=== PATIENT | male | born 1950 | race Caucasian/White ===

== ENCOUNTER 2017-10-13 18:20 | Inpatient (IN) | payer OTHER ==
[2017-10-13] MEDS: ALBUTEROL 0.5% (NEB) 2.5 MG/0.5 ML AMP INH (19:08)
[2017-10-13 19:09] LABS: WHITE BLOOD COUNT 4.9 10^3/ul (4.8-10.8)
[2017-10-13 19:09] LABS: ABNORMAL IP MESSAGE 1; HEMATOCRIT 20.1 % (42.0-52.0); MEAN CORPUSCULAR HEMOGLOBIN 29.9 pg (29.0-33.0); MEAN CORPUSCULAR HGB CONC 32.8 g/dl (32.0-37.0); MEAN PLATELET VOLUME 10.9 fl (7.4-10.4); PLATELET COUNT 109 10^3/UL (140-415); POSITIVE DIFF @See below; RED BLOOD COUNT 2.21 10^6/ul (4.70-6.10); RED CELL DISTRIBUTION WIDTH 15.5 % (11.5-14.5)
[2017-10-13 19:18] LABS: ADD MAN DIFF? YES; HEMOGLOBIN 6.6 g/dl (14.0-18.0)
[2017-10-13 19:23] LABS: INR 1.15; PROTIME 14.9 Sec (11.9-14.9); PT RATIO 1.2
[2017-10-13 19:24] LABS: PARTIAL THROMBOPLASTIN TIME 35.7 Sec (25.0-35.0)
[2017-10-13 19:27] LABS: ALANINE AMINOTRANSFERASE 17 IU/L (13-69); ALBUMIN/GLOBULIN RATIO 0.96; ALKALINE PHOSPHATASE 119 IU/L (42-121); ANION GAP 20 (8-16); ASPARTATE AMINO TRANSFERASE 11 IU/L (15-46); BILIRUBIN,INDIRECT 0.3 mg/dl (0-1.1); BILIRUBIN,TOTAL 0.3 mg/dl (0.2-1.3); BLOOD UREA NITROGEN 47 mg/dl (7-20); CALCIUM 8.4 mg/dl (8.4-10.2); CARBON DIOXIDE 27 mmol/L (21-31); CHLORIDE 92 mmol/L (97-110); CREATININE 4.03 mg/dl (0.61-1.24); GLUCOSE 132 mg/dl (70-220); SODIUM 134 mmol/L (135-144); TOTAL PROTEIN 6.1 g/dl (6.1-8.1)
[2017-10-13] MEDS: MAGNESIUM SULFATE 1 GM/D5W 100 ML IVPB (19:47)
[2017-10-13] MEDS: SOD CHLORIDE 0.9% 1,000 ML IV (19:47)
[2017-10-13 19:50] LABS: TROPONIN-I 0.041 ng/ml (0.00-0.12)
[2017-10-13 19:53] LABS: ETHANOL < 10.0 mg/dl
[2017-10-13 20:04] LABS: BAND NEUTROPHILS % (M) 1 % (0-4); EOSINOPHILS # 0.2 10^3/ul (0.0-0.5); EOSINOPHILS % (M) 5 % (0.0-7.0); LYMPHOCYTES # 1.3 10^3/ul (0.8-2.9); LYMPHOCYTES #M 1.3 10^3/ul (0.8-2.9); LYMPHOCYTES % (M) 27 % (15-51); MONOCYTE # 0.8 10^3/ul (0.3-0.9); MONOCYTE #M 0.7 10^3/ul (0.3-0.9); MONOCYTES % (M) 16 % (0-11); SEG NEUT #M 2.5 10^3/ul (1.7-7.5); SEGMENTED NEUTROPHILS (M) % 51 % (39-77)
[2017-10-13 20:05] LABS: HYPOCHROMASIA 2+ (0-0)
[2017-10-13 20:20] LABS: MODE ROOM AIR; Site Right Brachial
[2017-10-14] MEDS ORDERED: GLUCAGON 1 MG INJ IM (02:30)
[2017-10-14] MEDS ORDERED: GLUCOSE GEL 15 GRAM TUBE PO ×2 (02:30)
[2017-10-14] MEDS ORDERED: GLUCOSE GEL 15 GRAM TUBE BUCCAL (02:30)
[2017-10-14] MEDS: ACCU-CHEK XX (02:46)
[2017-10-14] MEDS: PANTOPRAZOLE (EC) 40 MG TAB PO (06:34)
[2017-10-14 07:00] LABS: AADO2 Arterial 27.2 mmHg (7.0-24.0); Arterial Base Excess 1.7 mmol/L (-3.0-3); Arterial Blood Gas Oxygen Sat 94.9 mmHG (95.0-98.0); Arterial COHb 0.4 % (0.0-3.0); Arterial Fraction of Oxyhgb 94.1 % (93.0-99.0); Arterial HCO3 25.8 mmol/L (22.0-26.0); Arterial MetHb 0.4 % (0.0-1.5); Arterial Total Hemglobin 7.9 g/dl (12.0-18.0); Arterial pCO2 38.1 mmhg (35-45)
[2017-10-14] MEDS: INSULIN ASPART [NOVOLOG] 3 ML PEN SC ×4 (08:00→23:51)
[2017-10-14] MEDS: GABAPENTIN 300 MG CAP PO ×3 (08:42→22:30)
[2017-10-14] MEDS: ZINC SULFATE 220 MG CAP PO (08:42)
[2017-10-14] MEDS: DILTIAZEM (CD) 180 MG CAP PO (08:42)
[2017-10-14] MEDS: LORATADINE 10 MG TAB PO (08:42)
[2017-10-14] MEDS: METOPROLOL (XL) 50 MG TAB PO (08:42)
[2017-10-14] MEDS: PYRIDOXINE 50 MG TAB PO (08:45)
[2017-10-14 08:54] LABS: ADD MAN DIFF? NO
[2017-10-14 09:00] LABS: WHITE BLOOD COUNT 4.7 10^3/ul (4.8-10.8)
[2017-10-14 09:00] LABS: ABNORMAL IP MESSAGE 1; BASOPHILS % 0.4 % (0.0-2.0); EOSINOPHILS # 0.8 10^3/ul (0.0-0.5); HEMATOCRIT 24.2 % (42.0-52.0); HEMOGLOBIN 8.1 g/dl (14.0-18.0); LYMPHOCYTES % 20.2 % (15.0-51.0); MEAN CORPUSCULAR HEMOGLOBIN 29.9 pg (29.0-33.0); MEAN CORPUSCULAR HGB CONC 33.5 g/dl (32.0-37.0); MEAN CORPUSCULAR VOLUME 89.3 fl (82.0-101.0); MEAN PLATELET VOLUME 10.6 fl (7.4-10.4); MONOCYTE # 0.5 10^3/ul (0.3-0.9); MONOCYTES % 9.8 % (0.0-11.0); NEUTROPHIL # 2.5 10^3/ul (1.6-7.5); NEUTROPHILS % 52.2 % (39.0-77.0); PLATELET COUNT 94 10^3/UL (140-415); POSITIVE DIFF @See below; RED BLOOD COUNT 2.71 10^6/ul (4.70-6.10); RED CELL DISTRIBUTION WIDTH 15.6 % (11.5-14.5)
[2017-10-14 09:08] LABS: HEMOGLOBIN A1C 6.2 % (0-5.9)
[2017-10-14 09:19] LABS: ANION GAP 17 (8-16); BLOOD UREA NITROGEN 53 mg/dl (7-20); CALCIUM 8.4 mg/dl (8.4-10.2); CARBON DIOXIDE 28 mmol/L (21-31); CHLORIDE 94 mmol/L (97-110); CREATININE 4.07 mg/dl (0.61-1.24); GLUCOSE 109 mg/dl (70-220); IRON 111 ug/dl (35-150); MAGNESIUM 1.7 mg/dl (1.7-2.5); PHOSPHORUS 4.7 mg/dl (2.5-4.9); POTASSIUM 4.6 mmol/L (3.5-5.1); SODIUM 134 mmol/L (135-144)
[2017-10-14 09:28] LABS: % IRON SATURATION 54 % SAT (22-52); TOTAL IRON BINDING CAPACITY 207 ug/dl (241-421)
[2017-10-14] MEDS ORDERED: VANCOMYCIN IV PER PHARMACY XX (11:00)
[2017-10-14] MEDS: IOHEXOL 14.3 MG(I)/ML (ADULT) BTL PO (12:00)
[2017-10-14] MEDS: CEFEPIME 1GM/50 ML (PMX) 50 ML IVPB (13:23)
[2017-10-14] MEDS: VANCOMYCIN 1 GM 250 ML IVPB ×2 (16:56→18:51)
[2017-10-14] MEDS ORDERED: EPOETIN 4000 UNITS/1 ML INJ (ESRD) SC (17:00)
[2017-10-14] MEDS: ATORVASTATIN 20 MG TAB PO (22:30)
[2017-10-14] MEDS: INSULIN GLARGINE [LANtus] 3 ML PEN SC (23:55)
[2017-10-15] MEDS: ACCU-CHEK XX (02:00)
[2017-10-15] MEDS: PANTOPRAZOLE (EC) 40 MG TAB PO (06:07)
[2017-10-15] MEDS: INSULIN ASPART [NOVOLOG] 3 ML PEN SC ×4 (07:56→20:50)
[2017-10-15] MEDS: LORATADINE 10 MG TAB PO (09:04)
[2017-10-15] MEDS: PYRIDOXINE 50 MG TAB PO (09:06)
[2017-10-15] MEDS: GABAPENTIN 300 MG CAP PO ×3 (09:06→20:37)
[2017-10-15] MEDS: DILTIAZEM (CD) 180 MG CAP PO (09:06)
[2017-10-15] MEDS: METOPROLOL (XL) 50 MG TAB PO (09:06)
[2017-10-15] MEDS: ZINC SULFATE 220 MG CAP PO (09:06)
[2017-10-15] MEDS: DOCUSATE SODIUM 100 MG CAP PO (09:06)
[2017-10-15] MEDS: ASCORBIC ACID 500 MG TAB PO (09:06)
[2017-10-15] MEDS: MULTIVIT/CA CARB/B CMPLX/FA TAB PO (09:06)
[2017-10-15] MEDS: POLYETHYLENE GLYCOL 17 GM PACKET PO (09:07)
[2017-10-15] MEDS: LACTOBACILLUS RHAMNOSUS CAP PO (09:07)
[2017-10-15 09:14] LABS: ADD MAN DIFF? NO
[2017-10-15 09:18] LABS: ABNORMAL IP MESSAGE 1; BASOPHILS % 0.4 % (0.0-2.0); EOSINOPHILS # 0.8 10^3/ul (0.0-0.5); EOSINOPHILS % 14.6 % (0.0-7.0); HEMATOCRIT 22.6 % (42.0-52.0); HEMOGLOBIN 7.6 g/dl (14.0-18.0); LYMPHOCYTES # 1.2 10^3/ul (0.8-2.9); LYMPHOCYTES % 22.7 % (15.0-51.0); MEAN CORPUSCULAR HEMOGLOBIN 30.5 pg (29.0-33.0); MEAN CORPUSCULAR HGB CONC 33.6 g/dl (32.0-37.0); MEAN CORPUSCULAR VOLUME 90.8 fl (82.0-101.0); MEAN PLATELET VOLUME 10.3 fl (7.4-10.4); MONOCYTE # 0.9 10^3/ul (0.3-0.9); MONOCYTES % 17.3 % (0.0-11.0); NEUTROPHIL # 2.3 10^3/ul (1.6-7.5); NEUTROPHILS % 44.6 % (39.0-77.0); POSITIVE DIFF @See below; RED BLOOD COUNT 2.49 10^6/ul (4.70-6.10); RED CELL DISTRIBUTION WIDTH 15.4 % (11.5-14.5)
[2017-10-15 09:18] LABS: WHITE BLOOD COUNT 5.2 10^3/ul (4.8-10.8)
[2017-10-15 09:22] LABS: PLATELET COUNT 98 10^3/UL (140-415)
[2017-10-15 09:37] LABS: ANION GAP 11 (8-16); BLOOD UREA NITROGEN 37 mg/dl (7-20); CALCIUM 8.2 mg/dl (8.4-10.2); CARBON DIOXIDE 31 mmol/L (21-31); CHLORIDE 100 mmol/L (97-110); CREATININE 2.98 mg/dl (0.61-1.24); GLUCOSE 110 mg/dl (70-220); MAGNESIUM 1.7 mg/dl (1.7-2.5); POTASSIUM 4.1 mmol/L (3.5-5.1); SODIUM 138 mmol/L (135-144)
[2017-10-15 10:09] LABS: HEPATITIS B SURFACE ANTIGEN NEGATIVE (NEGATIVE)
[2017-10-15 10:26] LABS: HEPATITIS B SURFACE ANTIBODY NEGATIVE (NEGATIVE)
[2017-10-15 10:27] LABS: HEPATITIS B CORE ANTIBODY NEGATIVE (NEGATIVE)
[2017-10-15] MEDS: CEFEPIME 1GM/50 ML (PMX) 50 ML IVPB (12:12)
[2017-10-15 12:38] LABS: IMMEDIATE SPIN CROSSMATCH 1 3
[2017-10-15 16:51] LABS: TYPE AND SCREEN 1
[2017-10-15] MEDS: ATORVASTATIN 20 MG TAB PO (20:37)
[2017-10-15] MEDS: INSULIN GLARGINE [LANtus] 3 ML PEN SC (20:50)
[2017-10-16] MEDS: ACCU-CHEK XX (01:35)
[2017-10-16 05:39] LABS: ADD MAN DIFF? NO
[2017-10-16 05:45] LABS: BASOPHILS % 0.3 % (0.0-2.0); EOSINOPHILS % 14.1 % (0.0-7.0); HEMATOCRIT 24.1 % (42.0-52.0); HEMOGLOBIN 7.9 g/dl (14.0-18.0); LYMPHOCYTES # 1.5 10^3/ul (0.8-2.9); LYMPHOCYTES % 22.9 % (15.0-51.0); MEAN CORPUSCULAR HGB CONC 32.8 g/dl (32.0-37.0); MEAN CORPUSCULAR VOLUME 91.6 fl (82.0-101.0); MEAN PLATELET VOLUME 10.5 fl (7.4-10.4); MONOCYTE # 1.3 10^3/ul (0.3-0.9); MONOCYTES % 19.5 % (0.0-11.0); NEUTROPHIL # 2.9 10^3/ul (1.6-7.5); NEUTROPHILS % 42.9 % (39.0-77.0); PLATELET COUNT 114 10^3/UL (140-415); RED BLOOD COUNT 2.63 10^6/ul (4.70-6.10); RED CELL DISTRIBUTION WIDTH 15.3 % (11.5-14.5)
[2017-10-16 05:45] LABS: WHITE BLOOD COUNT 6.7 10^3/ul (4.8-10.8)
[2017-10-16] MEDS: morphine 2 MG INJ IV (06:00)
[2017-10-16] MEDS: PANTOPRAZOLE (EC) 40 MG TAB PO (06:00)
[2017-10-16 06:10] LABS: ANION GAP 11 (8-16); BLOOD UREA NITROGEN 44 mg/dl (7-20); CALCIUM 8.3 mg/dl (8.4-10.2); CARBON DIOXIDE 32 mmol/L (21-31); CHLORIDE 100 mmol/L (97-110); CREATININE 3.46 mg/dl (0.61-1.24); GLUCOSE 51 mg/dl (70-220); POTASSIUM 4.3 mmol/L (3.5-5.1); SODIUM 139 mmol/L (135-144)
[2017-10-16 06:12] LABS: VANCOMYCIN,RANDOM 8.7 ug/ml
[2017-10-16] MEDS: INSULIN ASPART [NOVOLOG] 3 ML PEN SC ×4 (08:00→20:44)
[2017-10-16] MEDS: METOPROLOL (XL) 50 MG TAB PO (09:00)
[2017-10-16] MEDS: DILTIAZEM (CD) 180 MG CAP PO (09:00)
[2017-10-16] MEDS: DOCUSATE SODIUM 100 MG CAP PO (09:02)
[2017-10-16] MEDS: MULTIVIT/CA CARB/B CMPLX/FA TAB PO (09:02)
[2017-10-16] MEDS: POLYETHYLENE GLYCOL 17 GM PACKET PO (09:03)
[2017-10-16] MEDS: LACTOBACILLUS RHAMNOSUS CAP PO (09:03)
[2017-10-16] MEDS: PYRIDOXINE 50 MG TAB PO (09:03)
[2017-10-16] MEDS: ZINC SULFATE 220 MG CAP PO (09:03)
[2017-10-16] MEDS: LORATADINE 10 MG TAB PO (09:03)
[2017-10-16] MEDS: GABAPENTIN 300 MG CAP PO ×3 (09:03→20:57)
[2017-10-16] MEDS: ASCORBIC ACID 500 MG TAB PO (09:08)
[2017-10-16 09:16] LABS: RETICULOCYTE RBC 2.77
[2017-10-16 09:16] LABS: RETICULOCYTE COUNT # 0.014 X10^6 (0.020-0.110); RETICULOCYTE COUNT % 0.5 % (0.5-1.5)
[2017-10-16 09:25] LABS: URIC ACID 4.5 mg/dl (3.1-7.9)
[2017-10-16 09:25] LABS: LACTATE DEHYDROGENASE 579 IU/L (313-618)
[2017-10-16 09:26] LABS: IRON 45 ug/dl (35-150)
[2017-10-16 09:36] LABS: % IRON SATURATION 20 % SAT (22-52); TOTAL IRON BINDING CAPACITY 223 ug/dl (241-421)
[2017-10-16 10:37] LABS: FOLATE 13.4 ng/ml (2.8-20.0)
[2017-10-16 11:00] LABS: CARCINOEMBRYONIC ANTIGEN 2.3 ng/ml (0.0-5.0)
[2017-10-16] MEDS ORDERED: ERTAPENEM SODIUM 0.5 GM in SOD CHLORIDE 0.9% 100 ML IVPB (11:30)
[2017-10-16] MEDS ORDERED: AMIKACIN IV PER PHARMACY XX (12:00)
[2017-10-16] MEDS: hydrOXYzine HCL 25 MG TAB PO (12:07)
[2017-10-16] MEDS: FOSFOMYCIN 3 GM PACKET PO (12:23)
[2017-10-16] MEDS ORDERED: VANCOMYCIN 1.25 GM in SOD CHLORIDE 0.9% 250 ML IVPB (13:00)
[2017-10-16] MEDS: AMPICILLIN 500 MG CAP PO ×2 (14:04→22:37)
[2017-10-16] MEDS: AMIKACIN 600 MG in DEXTROSE 5% 100 ML IVPB (18:34)
[2017-10-16] MEDS: ATORVASTATIN 20 MG TAB PO (20:56)
[2017-10-16] MEDS: INSULIN GLARGINE [LANtus] 3 ML PEN SC (20:58)
[2017-10-17] MEDS: ACCU-CHEK XX (02:13)
[2017-10-17] MEDS: AMPICILLIN 500 MG CAP PO ×3 (05:19→21:06)
[2017-10-17] MEDS: PANTOPRAZOLE (EC) 40 MG TAB PO (05:19)
[2017-10-17] MEDS: INSULIN ASPART [NOVOLOG] 3 ML PEN SC ×4 (08:00→21:04)
[2017-10-17] MEDS: GABAPENTIN 300 MG CAP PO ×3 (08:22→21:05)
[2017-10-17] MEDS: PYRIDOXINE 50 MG TAB PO (08:22)
[2017-10-17] MEDS: LACTOBACILLUS RHAMNOSUS CAP PO (08:22)
[2017-10-17] MEDS: MULTIVIT/CA CARB/B CMPLX/FA TAB PO (08:22)
[2017-10-17] MEDS: LORATADINE 10 MG TAB PO (08:22)
[2017-10-17] MEDS: POLYETHYLENE GLYCOL 17 GM PACKET PO (08:22)
[2017-10-17] MEDS: hydrOXYzine HCL 25 MG TAB PO (08:22)
[2017-10-17] MEDS: DOCUSATE SODIUM 100 MG CAP PO (08:23)
[2017-10-17] MEDS: ZINC SULFATE 220 MG CAP PO (08:23)
[2017-10-17] MEDS: ASCORBIC ACID 500 MG TAB PO (08:23)
[2017-10-17] MEDS: DILTIAZEM (CD) 180 MG CAP PO (08:24)
[2017-10-17] MEDS: METOPROLOL (XL) 50 MG TAB PO (08:24)
[2017-10-17 09:50] LABS: ADD MAN DIFF? NO
[2017-10-17 09:53] LABS: WHITE BLOOD COUNT 5.8 10^3/ul (4.8-10.8)
[2017-10-17 09:53] LABS: BASOPHILS % 0.5 % (0.0-2.0); EOSINOPHILS % 16.8 % (0.0-7.0); HEMOGLOBIN 8.4 g/dl (14.0-18.0); LYMPHOCYTES # 1.4 10^3/ul (0.8-2.9); LYMPHOCYTES % 23.7 % (15.0-51.0); MEAN CORPUSCULAR HGB CONC 32.3 g/dl (32.0-37.0); MEAN CORPUSCULAR VOLUME 92.9 fl (82.0-101.0); MEAN PLATELET VOLUME 10.2 fl (7.4-10.4); MONOCYTE # 1.1 10^3/ul (0.3-0.9); NEUTROPHIL # 2.4 10^3/ul (1.6-7.5); NEUTROPHILS % 40.8 % (39.0-77.0); PLATELET COUNT 114 10^3/UL (140-415); RED CELL DISTRIBUTION WIDTH 15.2 % (11.5-14.5)
[2017-10-17 10:20] LABS: ANION GAP 13 (8-16); BLOOD UREA NITROGEN 25 mg/dl (7-20); CALCIUM 8.3 mg/dl (8.4-10.2); CARBON DIOXIDE 31 mmol/L (21-31); CHLORIDE 99 mmol/L (97-110); CREATININE 2.47 mg/dl (0.61-1.24); GLUCOSE 90 mg/dl (70-220); SODIUM 139 mmol/L (135-144)
[2017-10-17 10:57] LABS: OCCULT BLOOD STOOL NEGATIVE (NEGATIVE)
[2017-10-17] MEDS: AMIKACIN 400 MG in DEXTROSE 5% 100 ML IVPB (13:21)
[2017-10-17] MEDS ORDERED: VANCOMYCIN IV PER PHARMACY XX (14:30)
[2017-10-17 15:52] LABS: HAPTOGLOBIN 164 mg/dL (43-212)
[2017-10-17] MEDS: VANCOMYCIN 2 GM in SOD CHLORIDE 0.9% 500 ML IVPB (16:37)
[2017-10-17 19:36] LABS: ERYTHROPOIETIN 38.2 mIU/mL (2.6-18.5)
[2017-10-17] MEDS: ALBUTEROL 0.083% (NEB) 2.5 MG/3 ML AMP NEB (20:36)
[2017-10-17] MEDS: INSULIN GLARGINE [LANtus] 3 ML PEN SC (21:03)
[2017-10-17] MEDS: ATORVASTATIN 20 MG TAB PO (21:05)
[2017-10-17] MEDS: NYSTATIN 30 GM POWDER BTL TOP (21:06)
[2017-10-18] MEDS: ACCU-CHEK XX (02:00)
[2017-10-18] MEDS: AMPICILLIN 500 MG CAP PO ×3 (05:40→21:07)
[2017-10-18] MEDS: PANTOPRAZOLE (EC) 40 MG TAB PO (05:40)
[2017-10-18] MEDS: INSULIN ASPART [NOVOLOG] 3 ML PEN SC ×4 (07:49→20:31)
[2017-10-18 08:34] LABS: ADD MAN DIFF? NO
[2017-10-18] MEDS: METOPROLOL (XL) 50 MG TAB PO (08:42)
[2017-10-18 08:48] LABS: BASOPHILS % 0.6 % (0.0-2.0); EOSINOPHILS # 1.1 10^3/ul (0.0-0.5); HEMATOCRIT 24.8 % (42.0-52.0); HEMOGLOBIN 7.9 g/dl (14.0-18.0); LYMPHOCYTES # 1.7 10^3/ul (0.8-2.9); LYMPHOCYTES % 25.9 % (15.0-51.0); MEAN CORPUSCULAR HEMOGLOBIN 29.9 pg (29.0-33.0); MEAN CORPUSCULAR HGB CONC 31.9 g/dl (32.0-37.0); MEAN CORPUSCULAR VOLUME 93.9 fl (82.0-101.0); MEAN PLATELET VOLUME 10.8 fl (7.4-10.4); MONOCYTE # 1.2 10^3/ul (0.3-0.9); MONOCYTES % 17.6 % (0.0-11.0); NEUTROPHIL # 2.6 10^3/ul (1.6-7.5); NEUTROPHILS % 38.6 % (39.0-77.0); PLATELET COUNT 122 10^3/UL (140-415); RED BLOOD COUNT 2.64 10^6/ul (4.70-6.10); RED CELL DISTRIBUTION WIDTH 15.4 % (11.5-14.5)
[2017-10-18 08:48] LABS: WHITE BLOOD COUNT 6.6 10^3/ul (4.8-10.8)
[2017-10-18] MEDS: MULTIVIT/CA CARB/B CMPLX/FA TAB PO (08:49)
[2017-10-18] MEDS: POLYETHYLENE GLYCOL 17 GM PACKET PO (08:49)
[2017-10-18] MEDS: NYSTATIN 30 GM POWDER BTL TOP ×2 (08:49→20:31)
[2017-10-18] MEDS: ASCORBIC ACID 500 MG TAB PO (08:50)
[2017-10-18] MEDS: GABAPENTIN 300 MG CAP PO ×3 (08:50→20:22)
[2017-10-18] MEDS: ZINC SULFATE 220 MG CAP PO (08:50)
[2017-10-18] MEDS: DOCUSATE SODIUM 100 MG CAP PO (08:50)
[2017-10-18] MEDS: LACTOBACILLUS RHAMNOSUS CAP PO (08:50)
[2017-10-18] MEDS: DILTIAZEM (CD) 180 MG CAP PO (08:50)
[2017-10-18] MEDS: PYRIDOXINE 50 MG TAB PO (08:50)
[2017-10-18] MEDS: LORATADINE 10 MG TAB PO (08:50)
[2017-10-18 08:59] LABS: ANION GAP 13 (8-16); BLOOD UREA NITROGEN 34 mg/dl (7-20); CALCIUM 8.2 mg/dl (8.4-10.2); CARBON DIOXIDE 31 mmol/L (21-31); CHLORIDE 103 mmol/L (97-110); CREATININE 3.27 mg/dl (0.61-1.24); GLUCOSE 79 mg/dl (70-220); MAGNESIUM 1.7 mg/dl (1.7-2.5); POTASSIUM 4.8 mmol/L (3.5-5.1); SODIUM 142 mmol/L (135-144)
[2017-10-18 10:24] LABS: IMMEDIATE SPIN CROSSMATCH 1 6
[2017-10-18] MEDS: AMIKACIN 400 MG in DEXTROSE 5% 100 ML IVPB (14:32)
[2017-10-18 16:21] LABS: HEPARIN INDUCED PLATELET AB NEGATIVE (NEGATIVE)
[2017-10-18] MEDS: morphine 2 MG INJ IV (20:22)
[2017-10-18] MEDS: ATORVASTATIN 20 MG TAB PO (20:22)
[2017-10-18] MEDS: INSULIN GLARGINE [LANtus] 3 ML PEN SC (20:30)
[2017-10-19] MEDS: ACCU-CHEK XX (02:27)
[2017-10-19] MEDS: PANTOPRAZOLE (EC) 40 MG TAB PO (05:17)
[2017-10-19] MEDS: AMPICILLIN 500 MG CAP PO ×3 (05:17→21:50)
[2017-10-19 07:05] LABS: ADD MAN DIFF? NO; BASOPHIL # 0.1 10^3/ul (0.0-0.1); BASOPHILS % 0.7 % (0.0-2.0); EOSINOPHILS # 1.3 10^3/ul (0.0-0.5); HEMATOCRIT 29.1 % (42.0-52.0); HEMOGLOBIN 9.6 g/dl (14.0-18.0); LYMPHOCYTES # 1.6 10^3/ul (0.8-2.9); LYMPHOCYTES % 23.1 % (15.0-51.0); MEAN CORPUSCULAR HEMOGLOBIN 30.8 pg (29.0-33.0); MEAN CORPUSCULAR VOLUME 93.3 fl (82.0-101.0); MONOCYTE # 1.1 10^3/ul (0.3-0.9); MONOCYTES % 16.4 % (0.0-11.0); NEUTROPHIL # 2.9 10^3/ul (1.6-7.5); NEUTROPHILS % 41.7 % (39.0-77.0); PLATELET COUNT 120 10^3/UL (140-415); RED BLOOD COUNT 3.12 10^6/ul (4.70-6.10); RED CELL DISTRIBUTION WIDTH 15.9 % (11.5-14.5)
[2017-10-19 07:05] LABS: WHITE BLOOD COUNT 6.9 10^3/ul (4.8-10.8)
[2017-10-19 07:28] LABS: ANION GAP 14 (8-16); BLOOD UREA NITROGEN 23 mg/dl (7-20); CALCIUM 8.3 mg/dl (8.4-10.2); CARBON DIOXIDE 29 mmol/L (21-31); CHLORIDE 102 mmol/L (97-110); CREATININE 2.38 mg/dl (0.61-1.24); GLUCOSE 61 mg/dl (70-220); POTASSIUM 4.4 mmol/L (3.5-5.1); SODIUM 141 mmol/L (135-144)
[2017-10-19 07:36] LABS: VANCOMYCIN,RANDOM 12.4 ug/ml
[2017-10-19] MEDS: INSULIN ASPART [NOVOLOG] 3 ML PEN SC ×4 (08:00→20:48)
[2017-10-19] MEDS: NYSTATIN 30 GM POWDER BTL TOP ×2 (09:00→20:44)
[2017-10-19] MEDS: MULTIVIT/CA CARB/B CMPLX/FA TAB PO (09:05)
[2017-10-19] MEDS: PYRIDOXINE 50 MG TAB PO (09:05)
[2017-10-19] MEDS: ASCORBIC ACID 500 MG TAB PO (09:05)
[2017-10-19] MEDS: LORATADINE 10 MG TAB PO (09:06)
[2017-10-19] MEDS: GABAPENTIN 300 MG CAP PO ×3 (09:06→20:44)
[2017-10-19] MEDS: METOPROLOL (XL) 50 MG TAB PO (09:06)
[2017-10-19] MEDS: LACTOBACILLUS RHAMNOSUS CAP PO (09:07)
[2017-10-19] MEDS: ZINC SULFATE 220 MG CAP PO (09:07)
[2017-10-19] MEDS: DOCUSATE SODIUM 100 MG CAP PO (09:07)
[2017-10-19] MEDS: POLYETHYLENE GLYCOL 17 GM PACKET PO (09:07)
[2017-10-19] MEDS: DILTIAZEM (CD) 180 MG CAP PO (10:42)
[2017-10-19] MEDS: VANCOMYCIN 1.25 GM in SOD CHLORIDE 0.9% 250 ML IVPB (11:59)
[2017-10-19] MEDS: morphine 2 MG INJ IV (20:38)
[2017-10-19] MEDS: ALBUTEROL 0.083% (NEB) 2.5 MG/3 ML AMP NEB (20:38)
[2017-10-19] MEDS: ATORVASTATIN 20 MG TAB PO (20:44)
[2017-10-19] MEDS: INSULIN GLARGINE [LANtus] 3 ML PEN SC (20:48)
[2017-10-20] MEDS: ACCU-CHEK XX (02:00)
[2017-10-20] MEDS: PANTOPRAZOLE (EC) 40 MG TAB PO (05:25)
[2017-10-20] MEDS: AMPICILLIN 500 MG CAP PO ×3 (05:25→21:26)
[2017-10-20] MEDS: INSULIN ASPART [NOVOLOG] 3 ML PEN SC ×4 (08:00→20:10)
[2017-10-20 08:45] LABS: ADD MAN DIFF? NO
[2017-10-20 08:50] LABS: BASOPHILS % 0.6 % (0.0-2.0); EOSINOPHILS # 1.2 10^3/ul (0.0-0.5); EOSINOPHILS % 17.3 % (0.0-7.0); HEMATOCRIT 32.8 % (42.0-52.0); HEMOGLOBIN 10.7 g/dl (14.0-18.0); LYMPHOCYTES # 1.6 10^3/ul (0.8-2.9); LYMPHOCYTES % 22.8 % (15.0-51.0); MEAN CORPUSCULAR HEMOGLOBIN 30.1 pg (29.0-33.0); MEAN CORPUSCULAR HGB CONC 32.6 g/dl (32.0-37.0); MEAN CORPUSCULAR VOLUME 92.4 fl (82.0-101.0); MEAN PLATELET VOLUME 10.8 fl (7.4-10.4); MONOCYTE # 0.9 10^3/ul (0.3-0.9); MONOCYTES % 13.7 % (0.0-11.0); NEUTROPHIL # 3.1 10^3/ul (1.6-7.5); NEUTROPHILS % 45.2 % (39.0-77.0); PLATELET COUNT 110 10^3/UL (140-415); RED BLOOD COUNT 3.55 10^6/ul (4.70-6.10); RED CELL DISTRIBUTION WIDTH 16.1 % (11.5-14.5)
[2017-10-20 08:50] LABS: WHITE BLOOD COUNT 6.8 10^3/ul (4.8-10.8)
[2017-10-20] MEDS: DILTIAZEM (CD) 180 MG CAP PO (08:58)
[2017-10-20] MEDS: LACTOBACILLUS RHAMNOSUS CAP PO (08:59)
[2017-10-20] MEDS: LORATADINE 10 MG TAB PO (08:59)
[2017-10-20] MEDS: POLYETHYLENE GLYCOL 17 GM PACKET PO (09:00)
[2017-10-20] MEDS: ZINC SULFATE 220 MG CAP PO (09:00)
[2017-10-20] MEDS: PYRIDOXINE 50 MG TAB PO (09:00)
[2017-10-20] MEDS: ASCORBIC ACID 500 MG TAB PO (09:00)
[2017-10-20] MEDS: GABAPENTIN 300 MG CAP PO ×3 (09:00→20:12)
[2017-10-20] MEDS: DOCUSATE SODIUM 100 MG CAP PO (09:00)
[2017-10-20] MEDS: MULTIVIT/CA CARB/B CMPLX/FA TAB PO (09:00)
[2017-10-20] MEDS: METOPROLOL (XL) 50 MG TAB PO (09:00)
[2017-10-20 09:10] LABS: INR 1.19; PROTIME 15.3 Sec (11.9-14.9); PT RATIO 1.2
[2017-10-20 09:11] LABS: PARTIAL THROMBOPLASTIN TIME 33.9 Sec (25.0-35.0)
[2017-10-20 09:22] LABS: ANION GAP 15 (8-16); BLOOD UREA NITROGEN 36 mg/dl (7-20); CALCIUM 8.4 mg/dl (8.4-10.2); CARBON DIOXIDE 28 mmol/L (21-31); CHLORIDE 104 mmol/L (97-110); CREATININE 3.35 mg/dl (0.61-1.24); GLUCOSE 60 mg/dl (70-220); POTASSIUM 4.8 mmol/L (3.5-5.1); SODIUM 142 mmol/L (135-144)
[2017-10-20] MEDS: DEXTROSE 5%-LR 1,000 ML IV (10:00)
[2017-10-20] MEDS: NYSTATIN 30 GM POWDER BTL TOP ×2 (11:51→20:12)
[2017-10-20] MEDS: FLUCONAZOLE 100 MG TAB PO (15:00)
[2017-10-20] MEDS: INSULIN GLARGINE [LANtus] 3 ML PEN SC (20:09)
[2017-10-20] MEDS: ATORVASTATIN 20 MG TAB PO (20:11)
[2017-10-20] MEDS: hydrOXYzine HCL 25 MG TAB PO (20:12)
[2017-10-20] MEDS: morphine 2 MG INJ IV (21:26)
[2017-10-20] MEDS: ALBUTEROL 0.083% (NEB) 2.5 MG/3 ML AMP NEB (21:38)
[2017-10-21] MEDS: DEXTROSE 5%-LR 1,000 ML IV ×4 (00:18→23:56)
[2017-10-21] MEDS: ACCU-CHEK XX (02:37)
[2017-10-21] MEDS: hydrOXYzine HCL 25 MG TAB PO (02:53)
[2017-10-21] MEDS: AMPICILLIN 500 MG CAP PO ×3 (05:56→22:00)
[2017-10-21] MEDS: PANTOPRAZOLE (EC) 40 MG TAB PO (05:57)
[2017-10-21] MEDS ORDERED: BUPIVACAINE 0.5%/EPI (SDV) 30 ML INJ (07:00)
[2017-10-21] MEDS: DILTIAZEM (CD) 180 MG CAP PO ×2 (09:00→16:02)
[2017-10-21] MEDS: POLYETHYLENE GLYCOL 17 GM PACKET PO (09:00)
[2017-10-21] MEDS: METOPROLOL (XL) 50 MG TAB PO ×2 (09:00→16:01)
[2017-10-21] MEDS: DOCUSATE SODIUM 100 MG CAP PO (09:00)
[2017-10-21] MEDS: LORATADINE 10 MG TAB PO (09:49)
[2017-10-21] MEDS: INSULIN ASPART [NOVOLOG] 3 ML PEN SC ×2 (09:49→12:00)
[2017-10-21] MEDS: PYRIDOXINE 50 MG TAB PO (09:49)
[2017-10-21] MEDS: ASCORBIC ACID 500 MG TAB PO (09:49)
[2017-10-21] MEDS: FLUCONAZOLE 100 MG TAB PO (09:49)
[2017-10-21] MEDS: ZINC SULFATE 220 MG CAP PO (09:49)
[2017-10-21] MEDS: LACTOBACILLUS RHAMNOSUS CAP PO (09:49)
[2017-10-21] MEDS: MULTIVIT/CA CARB/B CMPLX/FA TAB PO (09:49)
[2017-10-21] MEDS: GABAPENTIN 300 MG CAP PO ×3 (09:49→21:00)
[2017-10-21] MEDS: NYSTATIN 30 GM POWDER BTL TOP ×2 (09:50→21:00)
[2017-10-21 10:33] LABS: ADD MAN DIFF? NO
[2017-10-21 10:37] LABS: WHITE BLOOD COUNT 6.6 10^3/ul (4.8-10.8)
[2017-10-21 10:37] LABS: ABNORMAL IP MESSAGE 1; BASOPHILS % 0.5 % (0.0-2.0); EOSINOPHILS # 1.5 10^3/ul (0.0-0.5); EOSINOPHILS % 22.3 % (0.0-7.0); HEMATOCRIT 35.1 % (42.0-52.0); HEMOGLOBIN 11.2 g/dl (14.0-18.0); LYMPHOCYTES # 1.1 10^3/ul (0.8-2.9); MEAN CORPUSCULAR HEMOGLOBIN 30.4 pg (29.0-33.0); MEAN CORPUSCULAR HGB CONC 31.9 g/dl (32.0-37.0); MEAN CORPUSCULAR VOLUME 95.4 fl (82.0-101.0); MEAN PLATELET VOLUME 11.2 fl (7.4-10.4); MONOCYTE # 0.7 10^3/ul (0.3-0.9); MONOCYTES % 11.3 % (0.0-11.0); NEUTROPHIL # 3.3 10^3/ul (1.6-7.5); NEUTROPHILS % 49.6 % (39.0-77.0); PLATELET COUNT 98 10^3/UL (140-415); POSITIVE DIFF @See below; RED BLOOD COUNT 3.68 10^6/ul (4.70-6.10); RED CELL DISTRIBUTION WIDTH 16.3 % (11.5-14.5)
[2017-10-21 11:01] LABS: ALANINE AMINOTRANSFERASE 22 IU/L (13-69); ALBUMIN 2.8 g/dl (3.3-4.9); ALBUMIN/GLOBULIN RATIO 0.96; ALKALINE PHOSPHATASE 119 IU/L (42-121); ANION GAP 16 (8-16); ASPARTATE AMINO TRANSFERASE 20 IU/L (15-46); BILIRUBIN,INDIRECT 0.2 mg/dl (0-1.1); BILIRUBIN,TOTAL 0.2 mg/dl (0.2-1.3); BLOOD UREA NITROGEN 44 mg/dl (7-20); CALCIUM 8.6 mg/dl (8.4-10.2); CARBON DIOXIDE 27 mmol/L (21-31); CHLORIDE 104 mmol/L (97-110); CREATININE 3.83 mg/dl (0.61-1.24); GLUCOSE 167 mg/dl (70-220); POTASSIUM 4.8 mmol/L (3.5-5.1); SODIUM 142 mmol/L (135-144); TOTAL PROTEIN 5.7 g/dl (6.1-8.1)
[2017-10-21] MEDS ORDERED: ACCU-CHEK XX (17:00)
[2017-10-21] MEDS: Insulin NOVOLOG SS MILD Algorithm (NPO/TPN/ENTERAL FEEDS) SC ×2 (17:35→21:00)
[2017-10-21 19:14] LABS: POTASSIUM 4.7 mmol/L (3.5-5.1)
[2017-10-21] MEDS ORDERED: LIDOCAINE 0.5% (MDV) 50 ML INJ (19:53)
[2017-10-21] MEDS: INSULIN GLARGINE [LANtus] 3 ML PEN SC (20:00)
[2017-10-21] MEDS: ONDANSETRON 4 MG INJ IV (20:08)
[2017-10-21] MEDS ORDERED: ETOMIDATE 20 MG INJ (20:28)
[2017-10-21] MEDS ORDERED: ROCURONIUM 50 MG INJ ×2 (20:28→21:32)
[2017-10-21] MEDS ORDERED: FENTAnyl 50 MCG/ML VIAL (20:28)
[2017-10-21] MEDS ORDERED: MIDAZOLAM 1 MG/ML 2 ML INJ (20:28)
[2017-10-21] MEDS ORDERED: ONDANSETRON 4 MG INJ (20:28)
[2017-10-21] MEDS ORDERED: METOCLOPRAMIDE 10 MG INJ (20:28)
[2017-10-21] MEDS ORDERED: CEFAZOLIN 1 GM INJ (20:39)
[2017-10-21] MEDS: ATORVASTATIN 20 MG TAB PO (21:00)
[2017-10-21] MEDS ORDERED: SURGIFOAM POWDER 1 GM KIT (22:07)
[2017-10-21] MEDS ORDERED: THROMBIN 5000 UNIT VIAL (22:08)
[2017-10-21] MEDS ORDERED: NEOSTIGMINE 3 MG/3 ML SYRINGE (22:28)
[2017-10-21] MEDS ORDERED: EPHEDrine SULFATE 50 MG/5 ML SYG (22:28)
[2017-10-21] MEDS ORDERED: DIPHENHYDRAMINE 50 MG INJ IV (22:30)
[2017-10-21] MEDS ORDERED: ONDANSETRON 4 MG INJ IV (22:30)
[2017-10-21] MEDS ORDERED: HYDROmorphONE (0.2 MG/ML) 10ML SYG IV ×3 (22:30)
[2017-10-21] MEDS ORDERED: EPHEDrine SULFATE 50 MG/5 ML SYG IV (22:30)
[2017-10-21 23:21] LABS: ADD MAN DIFF? NO
[2017-10-21] MEDS ORDERED: PROPOFOL 100 ML (23:24)
[2017-10-21 23:26] LABS: WHITE BLOOD COUNT 9.5 10^3/ul (4.8-10.8)
[2017-10-21 23:26] LABS: BASOPHIL # 0.1 10^3/ul (0.0-0.1); BASOPHILS % 0.7 % (0.0-2.0); EOSINOPHILS # 1.6 10^3/ul (0.0-0.5); EOSINOPHILS % 16.9 % (0.0-7.0); HEMATOCRIT 37.7 % (42.0-52.0); HEMOGLOBIN 12.2 g/dl (14.0-18.0); LYMPHOCYTES # 2.1 10^3/ul (0.8-2.9); LYMPHOCYTES % 22.3 % (15.0-51.0); MEAN CORPUSCULAR HEMOGLOBIN 30.8 pg (29.0-33.0); MEAN CORPUSCULAR HGB CONC 32.4 g/dl (32.0-37.0); MEAN CORPUSCULAR VOLUME 95.2 fl (82.0-101.0); MEAN PLATELET VOLUME 10.6 fl (7.4-10.4); MONOCYTE # 0.8 10^3/ul (0.3-0.9); MONOCYTES % 8.9 % (0.0-11.0); NEUTROPHIL # 4.8 10^3/ul (1.6-7.5); NEUTROPHILS % 50.9 % (39.0-77.0); PLATELET COUNT 104 10^3/UL (140-415); RED BLOOD COUNT 3.96 10^6/ul (4.70-6.10); RED CELL DISTRIBUTION WIDTH 16.3 % (11.5-14.5)
[2017-10-21 23:50] LABS: ANION GAP 18 (8-16); BLOOD UREA NITROGEN 34 mg/dl (7-20); CALCIUM 8.4 mg/dl (8.4-10.2); CARBON DIOXIDE 26 mmol/L (21-31); CHLORIDE 104 mmol/L (97-110); CREATININE 3.18 mg/dl (0.61-1.24); GLUCOSE 107 mg/dl (70-220); POTASSIUM 4.7 mmol/L (3.5-5.1); SODIUM 143 mmol/L (135-144)
[2017-10-21] MEDS: PROPOFOL 100 ML IV (23:56)
[2017-10-22] MEDS: ACCU-CHEK XX (01:25)
[2017-10-22] MEDS: Insulin NOVOLOG SS MILD Algorithm (NPO/TPN/ENTERAL FEEDS) SC ×6 (01:31→21:00)
[2017-10-22] MEDS: AMPICILLIN 500 MG CAP PO ×4 (05:04→20:17)
[2017-10-22] MEDS: PANTOPRAZOLE (EC) 40 MG TAB PO ×2 (05:05→20:16)
[2017-10-22 06:07] LABS: AADO2 Arterial 237.8 mmHg (7.0-24.0); Arterial Base Excess -0.2 mmol/L (-3.0-3); Arterial Blood Gas Oxygen Sat 92.4 mmHG (95.0-98.0); Arterial COHb 0.5 % (0.0-3.0); Arterial Fraction of Oxyhgb 91.7 % (93.0-99.0); Arterial HCO3 25.7 mmol/L (22.0-26.0); Arterial MetHb 0.3 % (0.0-1.5); Arterial Total Hemglobin 12.1 g/dl (12.0-18.0); Arterial pCO2 46.9 mmhg (35-45); MODE VENT - AC; Site A-Line
[2017-10-22] MEDS: PROPOFOL 100 ML IV (06:21)
[2017-10-22 06:34] LABS: VANCOMYCIN,RANDOM 12.4 ug/ml
[2017-10-22 06:40] LABS: ANION GAP 19 (8-16); BLOOD UREA NITROGEN 36 mg/dl (7-20); CALCIUM 8.3 mg/dl (8.4-10.2); CARBON DIOXIDE 23 mmol/L (21-31); CHLORIDE 107 mmol/L (97-110); CREATININE 3.33 mg/dl (0.61-1.24); GLUCOSE 158 mg/dl (70-220); POTASSIUM 4.9 mmol/L (3.5-5.1); SODIUM 144 mmol/L (135-144)
[2017-10-22] MEDS: DEXTROSE 5%-0.45% NACL 1,000 ML IV (07:39)
[2017-10-22] MEDS: ASCORBIC ACID 500 MG TAB PO (09:00)
[2017-10-22] MEDS: PYRIDOXINE 50 MG TAB PO (09:00)
[2017-10-22] MEDS: ZINC SULFATE 220 MG CAP PO (09:00)
[2017-10-22] MEDS: DOCUSATE SODIUM 100 MG CAP PO (09:00)
[2017-10-22] MEDS: POLYETHYLENE GLYCOL 17 GM PACKET PO (09:00)
[2017-10-22] MEDS: GABAPENTIN 300 MG CAP PO ×3 (09:00→20:15)
[2017-10-22] MEDS: FLUCONAZOLE 100 MG TAB PO (09:00)
[2017-10-22] MEDS: LACTOBACILLUS RHAMNOSUS CAP PO (09:00)
[2017-10-22] MEDS: LORATADINE 10 MG TAB PO (09:00)
[2017-10-22] MEDS: METOPROLOL (XL) 50 MG TAB PO (09:00)
[2017-10-22] MEDS: DILTIAZEM (CD) 180 MG CAP PO (09:00)
[2017-10-22] MEDS: MULTIVIT/CA CARB/B CMPLX/FA TAB PO (09:00)
[2017-10-22] MEDS: NYSTATIN 30 GM POWDER BTL TOP ×2 (09:19→23:18)
[2017-10-22] MEDS: AMIKACIN 400 MG in DEXTROSE 5% 100 ML IVPB (10:31)
[2017-10-22 11:31] LABS: ADD MAN DIFF? NO
[2017-10-22 11:33] LABS: ABNORMAL IP MESSAGE 1; BASOPHILS % 0.5 % (0.0-2.0); EOSINOPHILS # 0.5 10^3/ul (0.0-0.5); EOSINOPHILS % 5.9 % (0.0-7.0); HEMATOCRIT 34.8 % (42.0-52.0); HEMOGLOBIN 11.3 g/dl (14.0-18.0); LYMPHOCYTES # 0.7 10^3/ul (0.8-2.9); LYMPHOCYTES % 9.2 % (15.0-51.0); MEAN CORPUSCULAR HEMOGLOBIN 30.9 pg (29.0-33.0); MEAN CORPUSCULAR HGB CONC 32.5 g/dl (32.0-37.0); MEAN CORPUSCULAR VOLUME 95.1 fl (82.0-101.0); MEAN PLATELET VOLUME 11.3 fl (7.4-10.4); MONOCYTE # 0.7 10^3/ul (0.3-0.9); NEUTROPHIL # 5.9 10^3/ul (1.6-7.5); PLATELET COUNT 98 10^3/UL (140-415); POSITIVE DIFF @See below; RED BLOOD COUNT 3.66 10^6/ul (4.70-6.10); RED CELL DISTRIBUTION WIDTH 16.4 % (11.5-14.5)
[2017-10-22 11:33] LABS: WHITE BLOOD COUNT 7.9 10^3/ul (4.8-10.8)
[2017-10-22 11:52] LABS: MAGNESIUM 1.8 mg/dl (1.7-2.5)
[2017-10-22 12:06] LABS: AADO2 Arterial 170.5 mmHg (7.0-24.0); Allen Test ACCEPTAB; Arterial Base Excess 1.3 mmol/L (-3.0-3); Arterial Blood Gas Oxygen Sat 92.3 mmHG (95.0-98.0); Arterial COHb 0.4 % (0.0-3.0); Arterial Fraction of Oxyhgb 91.7 % (93.0-99.0); Arterial HCO3 26.5 mmol/L (22.0-26.0); Arterial MetHb 0.2 % (0.0-1.5); Arterial pCO2 44.4 mmhg (35-45); Blood Gas PS 10; MODE VENT - CPAP; Site Right Radial
[2017-10-22] MEDS: HYDROmorphONE 0.5 MG/0.5 ML SYG IV ×2 (12:49→15:53)
[2017-10-22] MEDS: VANCOMYCIN 1 GM 250 ML IVPB (14:00)
[2017-10-22] MEDS: ATORVASTATIN 20 MG TAB PO (20:15)
[2017-10-22] MEDS: INSULIN GLARGINE [LANtus] 3 ML PEN SC (23:17)
[2017-10-23] MEDS: ACCU-CHEK XX (00:46)
[2017-10-23] MEDS: Insulin NOVOLOG SS MILD Algorithm (NPO/TPN/ENTERAL FEEDS) SC ×6 (01:00→21:00)
[2017-10-23] MEDS: HYDROmorphONE 0.5 MG/0.5 ML SYG IV ×3 (01:03→15:25)
[2017-10-23] MEDS: ALBUTEROL 0.083% (NEB) 2.5 MG/3 ML AMP NEB (02:08)
[2017-10-23] MEDS: DEXTROSE 50% 50 ML SYRINGE IV ×3 (05:54→09:59)
[2017-10-23 06:38] LABS: ADD MAN DIFF? NO
[2017-10-23 06:45] LABS: ABNORMAL IP MESSAGE 1; BASOPHIL # 0.1 10^3/ul (0.0-0.1); BASOPHILS % 0.5 % (0.0-2.0); EOSINOPHILS # 1.4 10^3/ul (0.0-0.5); EOSINOPHILS % 13.8 % (0.0-7.0); HEMATOCRIT 36.1 % (42.0-52.0); HEMOGLOBIN 11.3 g/dl (14.0-18.0); LYMPHOCYTES # 1.1 10^3/ul (0.8-2.9); LYMPHOCYTES % 11.5 % (15.0-51.0); MEAN CORPUSCULAR HEMOGLOBIN 30.4 pg (29.0-33.0); MEAN CORPUSCULAR HGB CONC 31.3 g/dl (32.0-37.0); MEAN PLATELET VOLUME 11.1 fl (7.4-10.4); MONOCYTE # 1.2 10^3/ul (0.3-0.9); MONOCYTES % 11.9 % (0.0-11.0); NEUTROPHIL # 6.1 10^3/ul (1.6-7.5); NEUTROPHILS % 61.9 % (39.0-77.0); PLATELET COUNT 81 10^3/UL (140-415); POSITIVE DIFF @See below; RED BLOOD COUNT 3.72 10^6/ul (4.70-6.10); RED CELL DISTRIBUTION WIDTH 16.7 % (11.5-14.5)
[2017-10-23 06:45] LABS: WHITE BLOOD COUNT 9.9 10^3/ul (4.8-10.8)
[2017-10-23] MEDS: DEXTROSE 5%-0.45% NACL 1,000 ML IV ×2 (07:00→15:28)
[2017-10-23 07:02] LABS: ANION GAP 16 (8-16); BLOOD UREA NITROGEN 44 mg/dl (7-20); CALCIUM 8.2 mg/dl (8.4-10.2); CARBON DIOXIDE 26 mmol/L (21-31); CHLORIDE 108 mmol/L (97-110); CREATININE 3.87 mg/dl (0.61-1.24); GLUCOSE 67 mg/dl (70-220); SODIUM 145 mmol/L (135-144)
[2017-10-23 07:03] LABS: MAGNESIUM 1.9 mg/dl (1.7-2.5)
[2017-10-23 07:03] LABS: PHOSPHORUS 5.5 mg/dl (2.5-4.9)
[2017-10-23] MEDS: DOCUSATE SODIUM 100 MG CAP PO (11:07)
[2017-10-23] MEDS: ZINC SULFATE 220 MG CAP PO (11:07)
[2017-10-23] MEDS: MULTIVIT/CA CARB/B CMPLX/FA TAB PO (11:07)
[2017-10-23] MEDS: PYRIDOXINE 50 MG TAB PO (11:08)
[2017-10-23] MEDS: LORATADINE 10 MG TAB PO (11:08)
[2017-10-23] MEDS: FLUCONAZOLE 100 MG TAB PO (11:08)
[2017-10-23] MEDS: LACTOBACILLUS RHAMNOSUS CAP PO (11:08)
[2017-10-23] MEDS: GABAPENTIN 300 MG CAP PO ×3 (11:08→21:24)
[2017-10-23] MEDS: ASCORBIC ACID 500 MG TAB PO (11:08)
[2017-10-23] MEDS: POLYETHYLENE GLYCOL 17 GM PACKET PO (11:09)
[2017-10-23] MEDS: NYSTATIN 30 GM POWDER BTL TOP ×2 (11:09→21:25)
[2017-10-23] MEDS: METOPROLOL (XL) 50 MG TAB PO (11:09)
[2017-10-23] MEDS: AMPICILLIN 500 MG CAP PO ×2 (15:13→21:26)
[2017-10-23] MEDS: AMIKACIN 400 MG in DEXTROSE 5% 100 ML IVPB (17:30)
[2017-10-23] MEDS: hydrOXYzine HCL 25 MG TAB PO (17:42)
[2017-10-23] MEDS: INSULIN GLARGINE [LANtus] 3 ML PEN SC (20:56)
[2017-10-23] MEDS: ATORVASTATIN 20 MG TAB PO (21:24)
[2017-10-24] MEDS: Insulin NOVOLOG SS MILD Algorithm (NPO/TPN/ENTERAL FEEDS) SC ×3 (01:00→09:00)
[2017-10-24] MEDS: morphine 2 MG INJ IV (01:08)
[2017-10-24] MEDS: ACCU-CHEK XX (02:00)
[2017-10-24] MEDS: AMPICILLIN 500 MG CAP PO ×3 (05:06→21:31)
[2017-10-24] MEDS: PANTOPRAZOLE (EC) 40 MG TAB PO (05:06)
[2017-10-24 05:20] LABS: ADD MAN DIFF? NO
[2017-10-24 05:28] LABS: ABNORMAL IP MESSAGE 1; BASOPHILS % 0.4 % (0.0-2.0); EOSINOPHILS # 1.5 10^3/ul (0.0-0.5); EOSINOPHILS % 15.8 % (0.0-7.0); HEMATOCRIT 31.7 % (42.0-52.0); HEMOGLOBIN 10.2 g/dl (14.0-18.0); LYMPHOCYTES # 1.5 10^3/ul (0.8-2.9); LYMPHOCYTES % 15.5 % (15.0-51.0); MEAN CORPUSCULAR HEMOGLOBIN 30.5 pg (29.0-33.0); MEAN CORPUSCULAR HGB CONC 32.2 g/dl (32.0-37.0); MEAN CORPUSCULAR VOLUME 94.9 fl (82.0-101.0); MEAN PLATELET VOLUME 11.8 fl (7.4-10.4); MONOCYTE # 0.9 10^3/ul (0.3-0.9); MONOCYTES % 9.8 % (0.0-11.0); NEUTROPHIL # 5.6 10^3/ul (1.6-7.5); NEUTROPHILS % 58.1 % (39.0-77.0); PLATELET COUNT 72 10^3/UL (140-415); POSITIVE DIFF @See below; RED BLOOD COUNT 3.34 10^6/ul (4.70-6.10); RED CELL DISTRIBUTION WIDTH 16.5 % (11.5-14.5)
[2017-10-24 05:28] LABS: WHITE BLOOD COUNT 9.6 10^3/ul (4.8-10.8)
[2017-10-24 05:43] LABS: ANION GAP 16 (8-16); BLOOD UREA NITROGEN 32 mg/dl (7-20); CALCIUM 8.2 mg/dl (8.4-10.2); CARBON DIOXIDE 27 mmol/L (21-31); CHLORIDE 104 mmol/L (97-110); CREATININE 3.24 mg/dl (0.61-1.24); GLUCOSE 85 mg/dl (70-220); POTASSIUM 4.7 mmol/L (3.5-5.1); SODIUM 142 mmol/L (135-144)
[2017-10-24 05:51] LABS: MAGNESIUM 1.9 mg/dl (1.7-2.5)
[2017-10-24] MEDS: POLYETHYLENE GLYCOL 17 GM PACKET PO (09:45)
[2017-10-24] MEDS: MULTIVIT/CA CARB/B CMPLX/FA TAB PO (09:45)
[2017-10-24] MEDS: PYRIDOXINE 50 MG TAB PO (09:45)
[2017-10-24] MEDS: DOCUSATE SODIUM 100 MG CAP PO (09:45)
[2017-10-24] MEDS: FLUCONAZOLE 100 MG TAB PO (09:46)
[2017-10-24] MEDS: GABAPENTIN 300 MG CAP PO ×3 (09:46→21:31)
[2017-10-24] MEDS: METOPROLOL (XL) 50 MG TAB PO ×2 (09:46→21:31)
[2017-10-24] MEDS: LORATADINE 10 MG TAB PO (09:46)
[2017-10-24] MEDS: LACTOBACILLUS RHAMNOSUS CAP PO (09:46)
[2017-10-24] MEDS: ZINC SULFATE 220 MG CAP PO (09:47)
[2017-10-24] MEDS: ASCORBIC ACID 500 MG TAB PO (09:47)
[2017-10-24] MEDS: NYSTATIN 30 GM POWDER BTL TOP ×2 (09:48→21:00)
[2017-10-24] MEDS ORDERED: ACETYLCYSTEINE 20% 4 ML VIAL NEB (10:30)
[2017-10-24] MEDS: ATORVASTATIN 20 MG TAB PO (21:30)
[2017-10-25] MEDS: HYDROmorphONE 0.5 MG/0.5 ML SYG IV ×4 (01:17→21:01)
[2017-10-25] MEDS: AMPICILLIN 500 MG CAP PO ×3 (06:07→21:01)
[2017-10-25] MEDS: PANTOPRAZOLE (EC) 40 MG TAB PO (06:07)
[2017-10-25] MEDS: DEXTROSE 5%-0.45% NACL 1,000 ML IV (06:08)
[2017-10-25 06:48] LABS: ADD MAN DIFF? NO
[2017-10-25 06:54] LABS: WHITE BLOOD COUNT 8.2 10^3/ul (4.8-10.8)
[2017-10-25 06:54] LABS: ABNORMAL IP MESSAGE 1; BASOPHIL # 0.1 10^3/ul (0.0-0.1); BASOPHILS % 0.6 % (0.0-2.0); EOSINOPHILS # 1.7 10^3/ul (0.0-0.5); EOSINOPHILS % 20.4 % (0.0-7.0); HEMOGLOBIN 10.2 g/dl (14.0-18.0); LYMPHOCYTES # 1.5 10^3/ul (0.8-2.9); LYMPHOCYTES % 18.1 % (15.0-51.0); MEAN CORPUSCULAR HEMOGLOBIN 30.4 pg (29.0-33.0); MEAN CORPUSCULAR HGB CONC 31.9 g/dl (32.0-37.0); MEAN CORPUSCULAR VOLUME 95.5 fl (82.0-101.0); MEAN PLATELET VOLUME 11.6 fl (7.4-10.4); MONOCYTE # 0.9 10^3/ul (0.3-0.9); MONOCYTES % 10.8 % (0.0-11.0); NEUTROPHIL # 4.1 10^3/ul (1.6-7.5); NEUTROPHILS % 49.9 % (39.0-77.0); PLATELET COUNT 85 10^3/UL (140-415); POSITIVE DIFF @See below; RED BLOOD COUNT 3.35 10^6/ul (4.70-6.10); RED CELL DISTRIBUTION WIDTH 16.3 % (11.5-14.5)
[2017-10-25 07:46] LABS: ANION GAP 14 (8-16); BLOOD UREA NITROGEN 45 mg/dl (7-20); CALCIUM 8.5 mg/dl (8.4-10.2); CARBON DIOXIDE 27 mmol/L (21-31); CHLORIDE 104 mmol/L (97-110); CREATININE 3.72 mg/dl (0.61-1.24); GLUCOSE 88 mg/dl (70-220); POTASSIUM 5.1 mmol/L (3.5-5.1); SODIUM 140 mmol/L (135-144)
[2017-10-25] MEDS: LORATADINE 10 MG TAB PO (08:28)
[2017-10-25] MEDS: DOCUSATE SODIUM 100 MG CAP PO (08:29)
[2017-10-25] MEDS: FLUCONAZOLE 100 MG TAB PO (08:29)
[2017-10-25] MEDS: LACTOBACILLUS RHAMNOSUS CAP PO (08:29)
[2017-10-25] MEDS: MULTIVIT/CA CARB/B CMPLX/FA TAB PO (08:30)
[2017-10-25] MEDS: POLYETHYLENE GLYCOL 17 GM PACKET PO (08:30)
[2017-10-25] MEDS: GABAPENTIN 300 MG CAP PO ×3 (08:30→20:57)
[2017-10-25] MEDS: ASCORBIC ACID 500 MG TAB PO (08:31)
[2017-10-25] MEDS: ZINC SULFATE 220 MG CAP PO (08:31)
[2017-10-25] MEDS: METOPROLOL (XL) 50 MG TAB PO ×2 (08:31→20:56)
[2017-10-25] MEDS: PYRIDOXINE 50 MG TAB PO (08:31)
[2017-10-25] MEDS: NYSTATIN 30 GM POWDER BTL TOP ×2 (08:32→20:56)
[2017-10-25] MEDS: VANCOMYCIN 1 GM 250 ML IVPB (13:12)
[2017-10-25] MEDS: DIPHENHYDRAMINE 50 MG INJ IV (14:30)
[2017-10-25] MEDS: hydrOXYzine HCL 25 MG TAB PO (20:57)
[2017-10-25] MEDS: ATORVASTATIN 20 MG TAB PO (20:57)
[2017-10-26] MEDS: DEXTROSE 5%-0.45% NACL 1,000 ML IV (04:56)
[2017-10-26] MEDS: HYDROmorphONE 0.5 MG/0.5 ML SYG IV ×2 (05:00→23:53)
[2017-10-26] MEDS: DIPHENHYDRAMINE 50 MG INJ IV (05:20)
[2017-10-26] MEDS: PANTOPRAZOLE (EC) 40 MG TAB PO (05:20)
[2017-10-26] MEDS: AMPICILLIN 500 MG CAP PO ×3 (05:20→21:48)
[2017-10-26 06:37] LABS: ABNORMAL IP MESSAGE 1; HEMATOCRIT 30.9 % (42.0-52.0); HEMOGLOBIN 9.7 g/dl (14.0-18.0); MEAN CORPUSCULAR HEMOGLOBIN 30.2 pg (29.0-33.0); MEAN CORPUSCULAR HGB CONC 31.4 g/dl (32.0-37.0); MEAN CORPUSCULAR VOLUME 96.3 fl (82.0-101.0); MEAN PLATELET VOLUME 11.6 fl (7.4-10.4); PLATELET COUNT 83 10^3/UL (140-415); POSITIVE DIFF @See below; RED BLOOD COUNT 3.21 10^6/ul (4.70-6.10); RED CELL DISTRIBUTION WIDTH 15.9 % (11.5-14.5)
[2017-10-26 06:37] LABS: WHITE BLOOD COUNT 8.2 10^3/ul (4.8-10.8)
[2017-10-26] MEDS: BISACODYL (EC) 5 MG TAB PO (07:01)
[2017-10-26 07:15] LABS: ADD MAN DIFF? YES
[2017-10-26 07:31] LABS: ANION GAP 19 (8-16); BLOOD UREA NITROGEN 31 mg/dl (7-20); CALCIUM 8.2 mg/dl (8.4-10.2); CARBON DIOXIDE 27 mmol/L (21-31); CHLORIDE 100 mmol/L (97-110); CREATININE 2.88 mg/dl (0.61-1.24); GLUCOSE 94 mg/dl (70-220); POTASSIUM 4.7 mmol/L (3.5-5.1); SODIUM 141 mmol/L (135-144)
[2017-10-26 07:39] LABS: MAGNESIUM 1.8 mg/dl (1.7-2.5)
[2017-10-26] MEDS: PYRIDOXINE 50 MG TAB PO (08:13)
[2017-10-26] MEDS: LORATADINE 10 MG TAB PO (08:14)
[2017-10-26] MEDS: ASCORBIC ACID 500 MG TAB PO (08:14)
[2017-10-26] MEDS: LACTOBACILLUS RHAMNOSUS CAP PO (08:14)
[2017-10-26] MEDS: FLUCONAZOLE 100 MG TAB PO (08:14)
[2017-10-26] MEDS: ZINC SULFATE 220 MG CAP PO (08:14)
[2017-10-26] MEDS: GABAPENTIN 300 MG CAP PO ×3 (08:14→21:48)
[2017-10-26] MEDS: MULTIVIT/CA CARB/B CMPLX/FA TAB PO (08:14)
[2017-10-26] MEDS: NYSTATIN 30 GM POWDER BTL TOP ×2 (08:14→21:48)
[2017-10-26] MEDS: DOCUSATE SODIUM 100 MG CAP PO (08:14)
[2017-10-26] MEDS: POLYETHYLENE GLYCOL 17 GM PACKET PO (08:14)
[2017-10-26] MEDS: METOPROLOL (XL) 50 MG TAB PO (08:19)
[2017-10-26 10:32] LABS: ANISOCYTOSIS 1+ (0-0); BASOPHIL #M 0.1 10^3/ul (0.0-0.0); BASOPHILS % (M) 2 % (0-2); EOSINOPHILS % (M) 21 % (0-7); GIANT THROMBO% (M) 3 % (0-0); LYMPHOCYTES #M 0.9 10^3/ul (0.8-2.9); LYMPHOCYTES % (M) 12 % (15-51); MONOCYTE #M 0.5 10^3/ul (0.3-0.9); MONOCYTES % (M) 7 % (0-11); PLATELET ESTIMATE DECREASED; POLYCHROMASIA 1+ (0-0); SEGMENTED NEUTROPHILS (M) % 58 % (39-77); SMUDGE%M 11 % (0-0)
[2017-10-26] MEDS: ONDANSETRON 4 MG INJ IV (13:11)
[2017-10-26] MEDS: ALTEPLASE (CATHFLO) 2 MG INJ CATHETER (15:18)
[2017-10-26] MEDS: AMIKACIN 400 MG in DEXTROSE 5% 100 ML IVPB (18:32)
[2017-10-26] MEDS: ATORVASTATIN 20 MG TAB PO (21:48)
[2017-10-26] MEDS: traZODone 50 MG TAB PO (21:48)
[2017-10-27] MEDS: AMPICILLIN 500 MG CAP PO ×3 (05:56→22:52)
[2017-10-27] MEDS: HYDROmorphONE 0.5 MG/0.5 ML SYG IV ×2 (05:56→19:32)
[2017-10-27] MEDS: PANTOPRAZOLE (EC) 40 MG TAB PO (05:56)
[2017-10-27] MEDS: DEXTROSE 5%-0.45% NACL 1,000 ML IV (07:00)
[2017-10-27] MEDS: GABAPENTIN 300 MG CAP PO ×3 (08:51→20:33)
[2017-10-27] MEDS: DOCUSATE SODIUM 100 MG CAP PO (08:51)
[2017-10-27] MEDS: METOPROLOL (XL) 100 MG TAB PO ×2 (08:51→20:33)
[2017-10-27] MEDS: MULTIVIT/CA CARB/B CMPLX/FA TAB PO (08:52)
[2017-10-27] MEDS: LORATADINE 10 MG TAB PO (08:52)
[2017-10-27] MEDS: FLUCONAZOLE 100 MG TAB PO (08:52)
[2017-10-27] MEDS: PYRIDOXINE 50 MG TAB PO (08:52)
[2017-10-27] MEDS: ZINC SULFATE 220 MG CAP PO (08:52)
[2017-10-27] MEDS: LACTOBACILLUS RHAMNOSUS CAP PO (08:52)
[2017-10-27] MEDS: ASCORBIC ACID 500 MG TAB PO (08:52)
[2017-10-27] MEDS: POLYETHYLENE GLYCOL 17 GM PACKET PO (08:52)
[2017-10-27] MEDS: NYSTATIN 30 GM POWDER BTL TOP ×2 (08:53→20:35)
[2017-10-27] MEDS: SENNA TAB PO ×2 (13:32→20:34)
[2017-10-27] MEDS: ONDANSETRON 4 MG INJ IV (16:05)
[2017-10-27] MEDS: ATORVASTATIN 20 MG TAB PO (20:33)
[2017-10-27] MEDS: traZODone 50 MG TAB PO (20:34)
[2017-10-27] MEDS: BALSAM PERU/CASTOR OIL 60 GM TUBE TOP (20:35)
[2017-10-28] MEDS: AMPICILLIN 500 MG CAP PO ×3 (06:07→21:50)
[2017-10-28] MEDS: PANTOPRAZOLE (EC) 40 MG TAB PO (06:07)
[2017-10-28] MEDS: HYDROmorphONE 0.5 MG/0.5 ML SYG IV ×2 (06:09→20:32)
[2017-10-28 07:03] LABS: ADD MAN DIFF? NO
[2017-10-28 07:16] LABS: ABNORMAL IP MESSAGE 1; BASOPHIL # 0.1 10^3/ul (0.0-0.1); BASOPHILS % 0.6 % (0.0-2.0); EOSINOPHILS # 1.5 10^3/ul (0.0-0.5); EOSINOPHILS % 19.7 % (0.0-7.0); HEMATOCRIT 35.3 % (42.0-52.0); LYMPHOCYTES # 1.5 10^3/ul (0.8-2.9); LYMPHOCYTES % 19.6 % (15.0-51.0); MEAN CORPUSCULAR HEMOGLOBIN 30.6 pg (29.0-33.0); MEAN CORPUSCULAR HGB CONC 31.2 g/dl (32.0-37.0); MEAN CORPUSCULAR VOLUME 98.1 fl (82.0-101.0); MEAN PLATELET VOLUME 11.4 fl (7.4-10.4); MONOCYTE # 0.7 10^3/ul (0.3-0.9); MONOCYTES % 8.7 % (0.0-11.0); NEUTROPHILS % 51.1 % (39.0-77.0); PLATELET COUNT 92 10^3/UL (140-415); POSITIVE DIFF @See below; RED CELL DISTRIBUTION WIDTH 15.4 % (11.5-14.5)
[2017-10-28 07:16] LABS: WHITE BLOOD COUNT 7.8 10^3/ul (4.8-10.8)
[2017-10-28] MEDS: DIPHENHYDRAMINE 25 MG CAP PO (07:35)
[2017-10-28 07:37] LABS: ANION GAP 15 (8-16); BLOOD UREA NITROGEN 56 mg/dl (7-20); CALCIUM 8.6 mg/dl (8.4-10.2); CARBON DIOXIDE 26 mmol/L (21-31); CHLORIDE 105 mmol/L (97-110); CREATININE 4.26 mg/dl (0.61-1.24); GLUCOSE 99 mg/dl (70-220); POTASSIUM 5.6 mmol/L (3.5-5.1); SODIUM 140 mmol/L (135-144)
[2017-10-28] MEDS: LACTOBACILLUS RHAMNOSUS CAP PO (08:26)
[2017-10-28] MEDS: GABAPENTIN 300 MG CAP PO ×3 (08:26→20:25)
[2017-10-28] MEDS: SENNA TAB PO ×2 (08:26→20:25)
[2017-10-28] MEDS: ASCORBIC ACID 500 MG TAB PO (08:26)
[2017-10-28] MEDS: FLUCONAZOLE 100 MG TAB PO (08:26)
[2017-10-28] MEDS: METOPROLOL (XL) 100 MG TAB PO ×2 (08:27→20:30)
[2017-10-28] MEDS: POLYETHYLENE GLYCOL 17 GM PACKET PO (08:28)
[2017-10-28] MEDS: MULTIVIT/CA CARB/B CMPLX/FA TAB PO (08:28)
[2017-10-28] MEDS: PYRIDOXINE 50 MG TAB PO (08:28)
[2017-10-28] MEDS: ZINC SULFATE 220 MG CAP PO (08:28)
[2017-10-28] MEDS: DOCUSATE SODIUM 100 MG CAP PO (08:28)
[2017-10-28] MEDS: BALSAM PERU/CASTOR OIL 60 GM TUBE TOP ×2 (08:29→20:26)
[2017-10-28] MEDS: NYSTATIN 30 GM POWDER BTL TOP ×2 (08:29→20:26)
[2017-10-28] MEDS: LORATADINE 10 MG TAB PO (08:37)
[2017-10-28] MEDS: AMIKACIN 400 MG in DEXTROSE 5% 100 ML IVPB (18:29)
[2017-10-28] MEDS: ATORVASTATIN 20 MG TAB PO (20:25)
[2017-10-28] MEDS: traZODone 50 MG TAB PO (20:25)
[2017-10-28] MEDS: VANCOMYCIN 1 GM 250 ML IVPB ×2 (21:50→21:51)
[2017-10-29] MEDS: MAGNESIUM SULFATE 1 GM/D5W 100 ML IVPB (00:32)
[2017-10-29] MEDS: ONDANSETRON 4 MG INJ IV (03:33)
[2017-10-29] MEDS: PANTOPRAZOLE (EC) 40 MG TAB PO (06:10)
[2017-10-29] MEDS: AMPICILLIN 500 MG CAP PO ×3 (06:10→22:00)
[2017-10-29 07:48] LABS: ADD MAN DIFF? NO
[2017-10-29 07:53] LABS: WHITE BLOOD COUNT 7.6 10^3/ul (4.8-10.8)
[2017-10-29 07:53] LABS: ABNORMAL IP MESSAGE 1; BASOPHIL # 0.1 10^3/ul (0.0-0.1); BASOPHILS % 0.7 % (0.0-2.0); EOSINOPHILS # 1.4 10^3/ul (0.0-0.5); EOSINOPHILS % 18.9 % (0.0-7.0); HEMATOCRIT 31.9 % (42.0-52.0); LYMPHOCYTES # 1.2 10^3/ul (0.8-2.9); LYMPHOCYTES % 15.7 % (15.0-51.0); MEAN CORPUSCULAR HEMOGLOBIN 30.6 pg (29.0-33.0); MEAN CORPUSCULAR HGB CONC 31.3 g/dl (32.0-37.0); MEAN CORPUSCULAR VOLUME 97.6 fl (82.0-101.0); MEAN PLATELET VOLUME 11.6 fl (7.4-10.4); MONOCYTE # 0.6 10^3/ul (0.3-0.9); MONOCYTES % 8.4 % (0.0-11.0); NEUTROPHIL # 4.2 10^3/ul (1.6-7.5); NEUTROPHILS % 55.8 % (39.0-77.0); POSITIVE DIFF @See below; RED BLOOD COUNT 3.27 10^6/ul (4.70-6.10); RED CELL DISTRIBUTION WIDTH 15.2 % (11.5-14.5)
[2017-10-29 08:03] LABS: PLATELET COUNT 95 10^3/UL (140-415)
[2017-10-29 08:15] LABS: ALANINE AMINOTRANSFERASE 15 IU/L (13-69); ALBUMIN 2.8 g/dl (3.3-4.9); ALBUMIN/GLOBULIN RATIO 0.87; ALKALINE PHOSPHATASE 147 IU/L (42-121); ANION GAP 16 (8-16); ASPARTATE AMINO TRANSFERASE 37 IU/L (15-46); BILIRUBIN,INDIRECT 0.1 mg/dl (0-1.1); BILIRUBIN,TOTAL 0.1 mg/dl (0.2-1.3); BLOOD UREA NITROGEN 42 mg/dl (7-20); CALCIUM 8.2 mg/dl (8.4-10.2); CARBON DIOXIDE 27 mmol/L (21-31); CHLORIDE 101 mmol/L (97-110); CREATININE 3.47 mg/dl (0.61-1.24); GLUCOSE 86 mg/dl (70-220); POTASSIUM 4.7 mmol/L (3.5-5.1); SODIUM 139 mmol/L (135-144)
[2017-10-29] MEDS: DOCUSATE SODIUM 100 MG CAP PO (08:57)
[2017-10-29] MEDS: METOPROLOL (XL) 100 MG TAB PO ×2 (08:58→22:21)
[2017-10-29] MEDS: FLUCONAZOLE 100 MG TAB PO (08:58)
[2017-10-29] MEDS: SENNA TAB PO ×2 (08:59→22:19)
[2017-10-29] MEDS: GABAPENTIN 300 MG CAP PO ×3 (08:59→22:19)
[2017-10-29] MEDS: ZINC SULFATE 220 MG CAP PO (09:00)
[2017-10-29] MEDS: PYRIDOXINE 50 MG TAB PO (09:01)
[2017-10-29] MEDS: LACTOBACILLUS RHAMNOSUS CAP PO (09:01)
[2017-10-29] MEDS: ASCORBIC ACID 500 MG TAB PO (09:01)
[2017-10-29] MEDS: MULTIVIT/CA CARB/B CMPLX/FA TAB PO (09:02)
[2017-10-29] MEDS: LORATADINE 10 MG TAB PO (09:02)
[2017-10-29] MEDS: POLYETHYLENE GLYCOL 17 GM PACKET PO (09:03)
[2017-10-29] MEDS: NYSTATIN 30 GM POWDER BTL TOP ×2 (09:04→22:20)
[2017-10-29] MEDS: BALSAM PERU/CASTOR OIL 60 GM TUBE TOP ×2 (09:04→22:20)
[2017-10-29] MEDS: HYDROmorphONE 0.5 MG/0.5 ML SYG IV (12:12)
[2017-10-29] MEDS: DIPHENHYDRAMINE 50 MG INJ IV (15:36)
[2017-10-29] MEDS: ALBUTEROL 0.083% (NEB) 2.5 MG/3 ML AMP HHN ×2 (16:24→20:30)
[2017-10-29] MEDS: ACETYLCYSTEINE 20% 4 ML VIAL NEB ×2 (16:24→20:30)
[2017-10-29] MEDS: ATORVASTATIN 20 MG TAB PO (22:19)
[2017-10-29] MEDS: traZODone 50 MG TAB PO (22:19)
[2017-10-30] MEDS: ALBUTEROL 0.083% (NEB) 2.5 MG/3 ML AMP HHN ×4 (02:41→20:07)
[2017-10-30] MEDS: ACETYLCYSTEINE 20% 4 ML VIAL NEB ×4 (02:42→20:06)
[2017-10-30] MEDS: AMPICILLIN 500 MG CAP PO (06:00)
[2017-10-30] MEDS: PANTOPRAZOLE (EC) 40 MG TAB PO (06:54)
[2017-10-30 07:02] LABS: ADD MAN DIFF? NO
[2017-10-30 07:28] LABS: ANION GAP 13 (8-16); BLOOD UREA NITROGEN 53 mg/dl (7-20); CALCIUM 8.7 mg/dl (8.4-10.2); CARBON DIOXIDE 29 mmol/L (21-31); CHLORIDE 104 mmol/L (97-110); CREATININE 4.08 mg/dl (0.61-1.24); GLUCOSE 120 mg/dl (70-220); POTASSIUM 5.1 mmol/L (3.5-5.1); SODIUM 141 mmol/L (135-144)
[2017-10-30] MEDS: METOPROLOL (XL) 100 MG TAB PO ×2 (09:00→21:06)
[2017-10-30] MEDS: MULTIVIT/CA CARB/B CMPLX/FA TAB PO (09:02)
[2017-10-30] MEDS: LORATADINE 10 MG TAB PO (09:03)
[2017-10-30] MEDS: DOCUSATE SODIUM 100 MG CAP PO (09:03)
[2017-10-30] MEDS: GABAPENTIN 300 MG CAP PO ×3 (09:03→21:05)
[2017-10-30] MEDS: POLYETHYLENE GLYCOL 17 GM PACKET PO (09:04)
[2017-10-30] MEDS: ASCORBIC ACID 500 MG TAB PO (09:05)
[2017-10-30] MEDS: SENNA TAB PO ×2 (09:06→21:05)
[2017-10-30] MEDS: LACTOBACILLUS RHAMNOSUS CAP PO (09:06)
[2017-10-30] MEDS: ZINC SULFATE 220 MG CAP PO (09:06)
[2017-10-30] MEDS: FLUCONAZOLE 100 MG TAB PO (09:07)
[2017-10-30] MEDS: BALSAM PERU/CASTOR OIL 60 GM TUBE TOP ×2 (09:08→21:06)
[2017-10-30] MEDS: NYSTATIN 30 GM POWDER BTL TOP ×2 (09:08→21:06)
[2017-10-30] MEDS: DIPHENHYDRAMINE 50 MG INJ IV ×3 (09:09→21:07)
[2017-10-30 10:29] LABS: BASOPHIL # 0.1 10^3/ul (0.0-0.1); BASOPHILS % 0.8 % (0.0-2.0); EOSINOPHILS # 1.5 10^3/ul (0.0-0.5); EOSINOPHILS % 20.5 % (0.0-7.0); HEMATOCRIT 30.2 % (42.0-52.0); HEMOGLOBIN 9.5 g/dl (14.0-18.0); LYMPHOCYTES # 1.3 10^3/ul (0.8-2.9); LYMPHOCYTES % 17.8 % (15.0-51.0); MEAN CORPUSCULAR HEMOGLOBIN 30.4 pg (29.0-33.0); MEAN CORPUSCULAR HGB CONC 31.5 g/dl (32.0-37.0); MEAN CORPUSCULAR VOLUME 96.8 fl (82.0-101.0); MEAN PLATELET VOLUME 11.5 fl (7.4-10.4); MONOCYTE # 0.5 10^3/ul (0.3-0.9); MONOCYTES % 7.6 % (0.0-11.0); NEUTROPHIL # 3.7 10^3/ul (1.6-7.5); PLATELET COUNT 104 10^3/UL (140-415); RED BLOOD COUNT 3.12 10^6/ul (4.70-6.10); RED CELL DISTRIBUTION WIDTH 15.4 % (11.5-14.5)
[2017-10-30 10:29] LABS: WHITE BLOOD COUNT 7.1 10^3/ul (4.8-10.8)
[2017-10-30] MEDS: PYRIDOXINE 50 MG TAB PO (10:37)
[2017-10-30] MEDS: HYDROmorphONE 0.5 MG/0.5 ML SYG IV ×2 (12:27→21:07)
[2017-10-30] MEDS: CEPASTAT LOZENGE MT (16:18)
[2017-10-30] MEDS: AMLODIPINE 5 MG TAB PO (17:46)
[2017-10-30] MEDS: LORAZEPAM 2 MG INJ IV (18:23)
[2017-10-30] MEDS: ATORVASTATIN 20 MG TAB PO (21:05)
[2017-10-30] MEDS: traZODone 50 MG TAB PO (21:06)
[2017-10-31] MEDS: ACETYLCYSTEINE 20% 4 ML VIAL NEB ×4 (01:15→20:25)
[2017-10-31] MEDS: ALBUTEROL 0.083% (NEB) 2.5 MG/3 ML AMP HHN ×4 (01:15→20:25)
[2017-10-31] MEDS: DIPHENHYDRAMINE 50 MG INJ IV ×2 (02:21→20:56)
[2017-10-31] MEDS: LORAZEPAM 2 MG INJ IV ×2 (04:27→20:55)
[2017-10-31] MEDS: PANTOPRAZOLE (EC) 40 MG TAB PO (06:00)
[2017-10-31 08:27] LABS: ADD MAN DIFF? NO
[2017-10-31 08:33] LABS: WHITE BLOOD COUNT 6.8 10^3/ul (4.8-10.8)
[2017-10-31 08:33] LABS: BASOPHIL # 0.1 10^3/ul (0.0-0.1); EOSINOPHILS # 1.4 10^3/ul (0.0-0.5); EOSINOPHILS % 20.9 % (0.0-7.0); HEMATOCRIT 32.4 % (42.0-52.0); LYMPHOCYTES # 1.5 10^3/ul (0.8-2.9); LYMPHOCYTES % 21.5 % (15.0-51.0); MEAN CORPUSCULAR HEMOGLOBIN 30.2 pg (29.0-33.0); MEAN CORPUSCULAR HGB CONC 30.9 g/dl (32.0-37.0); MEAN CORPUSCULAR VOLUME 97.9 fl (82.0-101.0); MEAN PLATELET VOLUME 11.4 fl (7.4-10.4); MONOCYTE # 0.6 10^3/ul (0.3-0.9); NEUTROPHIL # 3.2 10^3/ul (1.6-7.5); NEUTROPHILS % 47.3 % (39.0-77.0); PLATELET COUNT 121 10^3/UL (140-415); RED BLOOD COUNT 3.31 10^6/ul (4.70-6.10); RED CELL DISTRIBUTION WIDTH 15.6 % (11.5-14.5)
[2017-10-31 08:49] LABS: ANION GAP 16 (8-16); BLOOD UREA NITROGEN 41 mg/dl (7-20); CALCIUM 8.6 mg/dl (8.4-10.2); CARBON DIOXIDE 25 mmol/L (21-31); CHLORIDE 103 mmol/L (97-110); CREATININE 3.47 mg/dl (0.61-1.24); GLUCOSE 108 mg/dl (70-220); POTASSIUM 4.7 mmol/L (3.5-5.1); SODIUM 139 mmol/L (135-144)
[2017-10-31] MEDS: POLYETHYLENE GLYCOL 17 GM PACKET PO (09:00)
[2017-10-31] MEDS: GABAPENTIN 300 MG CAP PO ×3 (10:16→20:56)
[2017-10-31] MEDS: ASCORBIC ACID 500 MG TAB PO (10:16)
[2017-10-31] MEDS: METOPROLOL (XL) 100 MG TAB PO ×2 (10:16→20:56)
[2017-10-31] MEDS: MULTIVIT/CA CARB/B CMPLX/FA TAB PO (10:17)
[2017-10-31] MEDS: PYRIDOXINE 50 MG TAB PO (10:18)
[2017-10-31] MEDS: LACTOBACILLUS RHAMNOSUS CAP PO (10:19)
[2017-10-31] MEDS: DOCUSATE SODIUM 100 MG CAP PO (10:19)
[2017-10-31] MEDS: LORATADINE 10 MG TAB PO (10:19)
[2017-10-31] MEDS: AMLODIPINE 5 MG TAB PO (10:20)
[2017-10-31] MEDS: SENNA TAB PO ×2 (10:20→20:56)
[2017-10-31] MEDS: ZINC SULFATE 220 MG CAP PO (10:20)
[2017-10-31] MEDS: NYSTATIN 30 GM POWDER BTL TOP ×2 (10:21→20:57)
[2017-10-31] MEDS: BALSAM PERU/CASTOR OIL 60 GM TUBE TOP ×2 (10:21→20:56)
[2017-10-31] MEDS: ONDANSETRON 4 MG INJ IV (14:11)
[2017-10-31] MEDS: HYDROmorphONE 0.5 MG/0.5 ML SYG IV (20:54)
[2017-10-31] MEDS: ATORVASTATIN 20 MG TAB PO (20:56)
[2017-10-31] MEDS: traZODone 50 MG TAB PO (20:56)
[2017-11-01] MEDS: ALBUTEROL 0.083% (NEB) 2.5 MG/3 ML AMP HHN ×5 (01:52→19:44)
[2017-11-01] MEDS: ACETYLCYSTEINE 20% 4 ML VIAL NEB ×4 (01:53→19:34)
[2017-11-01] MEDS: DIPHENHYDRAMINE 50 MG INJ IV (03:35)
[2017-11-01] MEDS: HYDROmorphONE 0.5 MG/0.5 ML SYG IV ×2 (03:35→21:20)
[2017-11-01] MEDS: PANTOPRAZOLE (EC) 40 MG TAB PO (05:15)
[2017-11-01 08:32] LABS: ADD MAN DIFF? NO
[2017-11-01 08:40] LABS: BASOPHIL # 0.1 10^3/ul (0.0-0.1); BASOPHILS % 0.7 % (0.0-2.0); EOSINOPHILS # 1.5 10^3/ul (0.0-0.5); EOSINOPHILS % 21.7 % (0.0-7.0); HEMATOCRIT 30.7 % (42.0-52.0); HEMOGLOBIN 9.4 g/dl (14.0-18.0); LYMPHOCYTES # 1.5 10^3/ul (0.8-2.9); LYMPHOCYTES % 22.2 % (15.0-51.0); MEAN CORPUSCULAR HEMOGLOBIN 30.4 pg (29.0-33.0); MEAN CORPUSCULAR HGB CONC 30.6 g/dl (32.0-37.0); MEAN CORPUSCULAR VOLUME 99.4 fl (82.0-101.0); MEAN PLATELET VOLUME 11.2 fl (7.4-10.4); MONOCYTE # 0.6 10^3/ul (0.3-0.9); MONOCYTES % 8.5 % (0.0-11.0); NEUTROPHIL # 3.2 10^3/ul (1.6-7.5); NEUTROPHILS % 46.5 % (39.0-77.0); PLATELET COUNT 130 10^3/UL (140-415); RED BLOOD COUNT 3.09 10^6/ul (4.70-6.10); RED CELL DISTRIBUTION WIDTH 15.7 % (11.5-14.5)
[2017-11-01 08:40] LABS: WHITE BLOOD COUNT 6.8 10^3/ul (4.8-10.8)
[2017-11-01 08:54] LABS: ANION GAP 14 (8-16); BLOOD UREA NITROGEN 55 mg/dl (7-20); CALCIUM 8.8 mg/dl (8.4-10.2); CARBON DIOXIDE 29 mmol/L (21-31); CHLORIDE 106 mmol/L (97-110); GLUCOSE 92 mg/dl (70-220); SODIUM 143 mmol/L (135-144)
[2017-11-01] MEDS: METOPROLOL (XL) 100 MG TAB PO ×2 (09:00→21:18)
[2017-11-01] MEDS: AMLODIPINE 5 MG TAB PO (09:00)
[2017-11-01] MEDS: PYRIDOXINE 50 MG TAB PO (09:03)
[2017-11-01] MEDS: BALSAM PERU/CASTOR OIL 60 GM TUBE TOP ×2 (09:03→21:19)
[2017-11-01] MEDS: MULTIVIT/CA CARB/B CMPLX/FA TAB PO (09:03)
[2017-11-01] MEDS: POLYETHYLENE GLYCOL 17 GM PACKET PO (09:03)
[2017-11-01] MEDS: ASPIRIN 81 MG TAB PO (09:03)
[2017-11-01] MEDS: LORATADINE 10 MG TAB PO (09:03)
[2017-11-01] MEDS: DOCUSATE SODIUM 100 MG CAP PO (09:03)
[2017-11-01] MEDS: ASCORBIC ACID 500 MG TAB PO (09:03)
[2017-11-01] MEDS: LACTOBACILLUS RHAMNOSUS CAP PO (09:03)
[2017-11-01] MEDS: NYSTATIN 30 GM POWDER BTL TOP ×2 (09:03→21:19)
[2017-11-01] MEDS: ZINC SULFATE 220 MG CAP PO (09:04)
[2017-11-01] MEDS: GABAPENTIN 300 MG CAP PO ×3 (09:04→21:18)
[2017-11-01] MEDS: SENNA TAB PO ×2 (09:04→21:18)
[2017-11-01 12:11] LABS: ANION GAP 17 (8-16); BLOOD UREA NITROGEN 56 mg/dl (7-20); CALCIUM 8.5 mg/dl (8.4-10.2); CARBON DIOXIDE 27 mmol/L (21-31); CHLORIDE 102 mmol/L (97-110); CREATININE 4.57 mg/dl (0.61-1.24); GLUCOSE 111 mg/dl (70-220); SODIUM 140 mmol/L (135-144)
[2017-11-01 12:17] LABS: POTASSIUM 5.5 mmol/L (3.5-5.1)
[2017-11-01] MEDS ORDERED: POLYETHYLENE GLYCOL 17 GM PACKET PO (13:30)
[2017-11-01] MEDS: NA POLYST SULFON 15 GM/60 ML BTL PO (13:46)
[2017-11-01] MEDS: ATORVASTATIN 20 MG TAB PO (21:18)
[2017-11-01] MEDS: traZODone 50 MG TAB PO (21:18)
[2017-11-02] MEDS: ALBUTEROL 0.083% (NEB) 2.5 MG/3 ML AMP HHN ×5 (01:40→19:24)
[2017-11-02] MEDS: HYDROmorphONE 0.5 MG/0.5 ML SYG IV ×2 (01:49→21:11)
[2017-11-02] MEDS: ACETYLCYSTEINE 20% 4 ML VIAL NEB ×4 (02:21→19:23)
[2017-11-02] MEDS: LORAZEPAM 2 MG INJ IV (05:06)
[2017-11-02] MEDS: PANTOPRAZOLE (EC) 40 MG TAB PO (05:06)
[2017-11-02 07:14] LABS: ADD MAN DIFF? NO
[2017-11-02 07:20] LABS: BASOPHILS % 0.5 % (0.0-2.0); EOSINOPHILS # 1.4 10^3/ul (0.0-0.5); EOSINOPHILS % 24.1 % (0.0-7.0); HEMATOCRIT 28.3 % (42.0-52.0); HEMOGLOBIN 8.8 g/dl (14.0-18.0); LYMPHOCYTES # 1.4 10^3/ul (0.8-2.9); LYMPHOCYTES % 22.9 % (15.0-51.0); MEAN CORPUSCULAR HEMOGLOBIN 30.6 pg (29.0-33.0); MEAN CORPUSCULAR HGB CONC 31.1 g/dl (32.0-37.0); MEAN CORPUSCULAR VOLUME 98.3 fl (82.0-101.0); MEAN PLATELET VOLUME 11.4 fl (7.4-10.4); MONOCYTE # 0.5 10^3/ul (0.3-0.9); MONOCYTES % 8.4 % (0.0-11.0); NEUTROPHIL # 2.6 10^3/ul (1.6-7.5); NEUTROPHILS % 43.9 % (39.0-77.0); PLATELET COUNT 117 10^3/UL (140-415); RED BLOOD COUNT 2.88 10^6/ul (4.70-6.10); RED CELL DISTRIBUTION WIDTH 15.8 % (11.5-14.5)
[2017-11-02 07:56] LABS: ANION GAP 14 (8-16); BLOOD UREA NITROGEN 41 mg/dl (7-20); CALCIUM 8.5 mg/dl (8.4-10.2); CARBON DIOXIDE 30 mmol/L (21-31); CHLORIDE 104 mmol/L (97-110); CREATININE 3.51 mg/dl (0.61-1.24); GLUCOSE 72 mg/dl (70-220); POTASSIUM 4.8 mmol/L (3.5-5.1); SODIUM 143 mmol/L (135-144)
[2017-11-02] MEDS: SENNA TAB PO ×2 (09:02→21:11)
[2017-11-02] MEDS: PYRIDOXINE 50 MG TAB PO (09:02)
[2017-11-02] MEDS: LORATADINE 10 MG TAB PO (09:02)
[2017-11-02] MEDS: ZINC SULFATE 220 MG CAP PO (09:02)
[2017-11-02] MEDS: LACTOBACILLUS RHAMNOSUS CAP PO (09:02)
[2017-11-02] MEDS: ASPIRIN 81 MG TAB PO (09:03)
[2017-11-02] MEDS: GABAPENTIN 300 MG CAP PO ×3 (09:03→21:11)
[2017-11-02] MEDS: MULTIVIT/CA CARB/B CMPLX/FA TAB PO (09:03)
[2017-11-02] MEDS: AMLODIPINE 5 MG TAB PO (09:03)
[2017-11-02] MEDS: ASCORBIC ACID 500 MG TAB PO (09:03)
[2017-11-02] MEDS: DOCUSATE SODIUM 100 MG CAP PO (09:04)
[2017-11-02] MEDS: METOPROLOL (XL) 100 MG TAB PO ×2 (09:04→21:37)
[2017-11-02] MEDS: NYSTATIN 30 GM POWDER BTL TOP ×2 (09:04→21:29)
[2017-11-02] MEDS: BALSAM PERU/CASTOR OIL 60 GM TUBE TOP ×2 (09:05→21:29)
[2017-11-02] MEDS: CEFEPIME 1GM/50 ML (PMX) 50 ML IVPB (18:26)
[2017-11-02] MEDS: ONDANSETRON 4 MG INJ IV (20:24)
[2017-11-02] MEDS: ATORVASTATIN 20 MG TAB PO (21:11)
[2017-11-02] MEDS: DIPHENHYDRAMINE 50 MG INJ IV (21:27)
[2017-11-02] MEDS: traZODone 50 MG TAB PO (21:37)
[2017-11-03] MEDS: ALBUTEROL 0.083% (NEB) 2.5 MG/3 ML AMP HHN ×4 (01:31→19:52)
[2017-11-03] MEDS: ACETYLCYSTEINE 20% 4 ML VIAL NEB ×4 (01:31→19:53)
[2017-11-03] MEDS: HYDROmorphONE 0.5 MG/0.5 ML SYG IV (04:44)
[2017-11-03 05:10] LABS: ADD MAN DIFF? NO
[2017-11-03 05:12] LABS: WHITE BLOOD COUNT 6.6 10^3/ul (4.8-10.8)
[2017-11-03 05:13] LABS: BASOPHILS % 0.6 % (0.0-2.0); EOSINOPHILS # 1.5 10^3/ul (0.0-0.5); EOSINOPHILS % 22.7 % (0.0-7.0); HEMATOCRIT 28.9 % (42.0-52.0); LYMPHOCYTES # 1.4 10^3/ul (0.8-2.9); LYMPHOCYTES % 21.6 % (15.0-51.0); MEAN CORPUSCULAR HEMOGLOBIN 30.6 pg (29.0-33.0); MEAN CORPUSCULAR HGB CONC 31.1 g/dl (32.0-37.0); MEAN CORPUSCULAR VOLUME 98.3 fl (82.0-101.0); MEAN PLATELET VOLUME 11.3 fl (7.4-10.4); MONOCYTE # 0.6 10^3/ul (0.3-0.9); MONOCYTES % 8.6 % (0.0-11.0); NEUTROPHIL # 3.1 10^3/ul (1.6-7.5); NEUTROPHILS % 46.2 % (39.0-77.0); PLATELET COUNT 136 10^3/UL (140-415); POSITIVE DIFF @See below; RED BLOOD COUNT 2.94 10^6/ul (4.70-6.10); RED CELL DISTRIBUTION WIDTH 15.8 % (11.5-14.5)
[2017-11-03] MEDS: DIPHENHYDRAMINE 50 MG INJ IV ×2 (05:25→17:57)
[2017-11-03 05:33] LABS: ANION GAP 15 (8-16); BLOOD UREA NITROGEN 53 mg/dl (7-20); CALCIUM 8.5 mg/dl (8.4-10.2); CARBON DIOXIDE 28 mmol/L (21-31); CHLORIDE 101 mmol/L (97-110); CREATININE 4.13 mg/dl (0.61-1.24); GLUCOSE 80 mg/dl (70-220); POTASSIUM 5.4 mmol/L (3.5-5.1); SODIUM 139 mmol/L (135-144)
[2017-11-03] MEDS: PANTOPRAZOLE (EC) 40 MG TAB PO (05:33)
[2017-11-03] MEDS ORDERED: ETOMIDATE 20 MG INJ (07:00)
[2017-11-03] MEDS ORDERED: VECURONIUM 10 MG VIAL (07:00)
[2017-11-03] MEDS: MULTIVIT/CA CARB/B CMPLX/FA TAB PO (12:06)
[2017-11-03] MEDS: DOCUSATE SODIUM 100 MG CAP PO (12:06)
[2017-11-03] MEDS: AMLODIPINE 5 MG TAB PO (12:07)
[2017-11-03] MEDS: LORATADINE 10 MG TAB PO (12:07)
[2017-11-03] MEDS: GABAPENTIN 300 MG CAP PO ×3 (12:07→21:00)
[2017-11-03] MEDS: LACTOBACILLUS RHAMNOSUS CAP PO (12:07)
[2017-11-03] MEDS: ASPIRIN 81 MG TAB PO (12:07)
[2017-11-03] MEDS: PYRIDOXINE 50 MG TAB PO (12:07)
[2017-11-03] MEDS: SENNA TAB PO (12:07)
[2017-11-03] MEDS: ASCORBIC ACID 500 MG TAB PO (12:08)
[2017-11-03] MEDS: ZINC SULFATE 220 MG CAP PO (12:08)
[2017-11-03] MEDS: NYSTATIN 30 GM POWDER BTL TOP ×2 (12:08→21:54)
[2017-11-03] MEDS: BALSAM PERU/CASTOR OIL 60 GM TUBE TOP ×2 (12:08→21:54)
[2017-11-03] MEDS ORDERED: VANCOMYCIN IV PER PHARMACY XX (13:00)
[2017-11-03] MEDS: morphine 2 MG INJ IV (14:01)
[2017-11-03] MEDS: PROPOFOL 100 ML IV ×2 (15:29→21:59)
[2017-11-03] MEDS: VANCOMYCIN 2 GM in SOD CHLORIDE 0.9% 500 ML IVPB (16:30)
[2017-11-03] MEDS: CEFEPIME 1GM/50 ML (PMX) 50 ML IVPB (17:57)
[2017-11-03] MEDS ORDERED: GLUCOSE GEL 15 GRAM TUBE PO ×2 (18:30)
[2017-11-03] MEDS ORDERED: GLUCOSE GEL 15 GRAM TUBE BUCCAL (18:30)
[2017-11-03] MEDS ORDERED: GLUCAGON 1 MG INJ IM (18:30)
[2017-11-03] MEDS: DEXTROSE 50% 50 ML SYRINGE IV ×2 (18:54→18:57)
[2017-11-03] MEDS: ATORVASTATIN 20 MG TAB PO (21:00)
[2017-11-03] MEDS: METOPROLOL 50 MG TAB GTB (21:52)
[2017-11-03] MEDS: traZODone 50 MG TAB NGT (22:28)
[2017-11-04] MEDS: ALBUTEROL 0.083% (NEB) 2.5 MG/3 ML AMP HHN ×4 (01:10→20:42)
[2017-11-04] MEDS: ACETYLCYSTEINE 20% 4 ML VIAL NEB ×4 (01:10→20:42)
[2017-11-04] MEDS: PROPOFOL 100 ML IV (04:22)
[2017-11-04 05:07] LABS: ADD MAN DIFF? NO
[2017-11-04 05:11] LABS: WHITE BLOOD COUNT 5.8 10^3/ul (4.8-10.8)
[2017-11-04 05:11] LABS: BASOPHIL # 0.1 10^3/ul (0.0-0.1); EOSINOPHILS # 1.4 10^3/ul (0.0-0.5); EOSINOPHILS % 23.4 % (0.0-7.0); HEMATOCRIT 31.2 % (42.0-52.0); HEMOGLOBIN 9.7 g/dl (14.0-18.0); LYMPHOCYTES # 1.2 10^3/ul (0.8-2.9); LYMPHOCYTES % 20.5 % (15.0-51.0); MEAN CORPUSCULAR HEMOGLOBIN 30.6 pg (29.0-33.0); MEAN CORPUSCULAR HGB CONC 31.1 g/dl (32.0-37.0); MEAN CORPUSCULAR VOLUME 98.4 fl (82.0-101.0); MONOCYTE # 0.5 10^3/ul (0.3-0.9); MONOCYTES % 7.8 % (0.0-11.0); NEUTROPHIL # 2.7 10^3/ul (1.6-7.5); NEUTROPHILS % 46.8 % (39.0-77.0); PLATELET COUNT 123 10^3/UL (140-415); RED BLOOD COUNT 3.17 10^6/ul (4.70-6.10); RED CELL DISTRIBUTION WIDTH 15.9 % (11.5-14.5)
[2017-11-04 05:32] LABS: ANION GAP 17 (8-16); BLOOD UREA NITROGEN 33 mg/dl (7-20); CALCIUM 8.5 mg/dl (8.4-10.2); CARBON DIOXIDE 28 mmol/L (21-31); CHLORIDE 100 mmol/L (97-110); CREATININE 3.38 mg/dl (0.61-1.24); GLUCOSE 60 mg/dl (70-220); POTASSIUM 4.4 mmol/L (3.5-5.1); SODIUM 141 mmol/L (135-144)
[2017-11-04] MEDS: PANTOPRAZOLE 40 MG INJ IV (05:36)
[2017-11-04] MEDS: DEXTROSE 50% 50 ML SYRINGE IV (06:41)
[2017-11-04] MEDS: DEXTROSE 5%-0.45% NACL 1,000 ML IV (07:29)
[2017-11-04] MEDS: ZINC SULFATE 220 MG CAP PO (09:00)
[2017-11-04] MEDS: SENNA TAB NGT ×2 (09:00→20:00)
[2017-11-04] MEDS: PYRIDOXINE 50 MG TAB PO (09:00)
[2017-11-04] MEDS: LACTOBACILLUS RHAMNOSUS CAP PO (09:56)
[2017-11-04] MEDS: GABAPENTIN 300 MG CAP NGT ×3 (09:57→20:00)
[2017-11-04] MEDS: LORATADINE 10 MG TAB PO (09:57)
[2017-11-04] MEDS: MULTIVIT/CA CARB/B CMPLX/FA TAB PO (09:57)
[2017-11-04] MEDS: ASCORBIC ACID 500 MG TAB NGT (09:57)
[2017-11-04] MEDS: DOCUSATE SODIUM 100 MG CAP PO (09:57)
[2017-11-04] MEDS: ASPIRIN 81 MG TAB PO (09:57)
[2017-11-04] MEDS: METOPROLOL 50 MG TAB GTB ×2 (09:57→20:00)
[2017-11-04] MEDS: AMLODIPINE 5 MG TAB NGT (09:58)
[2017-11-04] MEDS: NYSTATIN 30 GM POWDER BTL TOP ×2 (10:18→20:01)
[2017-11-04] MEDS: BALSAM PERU/CASTOR OIL 60 GM TUBE TOP ×2 (10:18→20:01)
[2017-11-04] MEDS: CEFEPIME 1GM/50 ML (PMX) 50 ML IVPB (15:30)
[2017-11-04] MEDS ORDERED: ALPRAZOLAM 0.25 MG TAB PO (18:30)
[2017-11-04] MEDS: DIPHENHYDRAMINE 25 MG CAP PO (20:00)
[2017-11-04] MEDS: HYDROmorphONE 0.5 MG/0.5 ML SYG IV (20:01)
[2017-11-04] MEDS: traZODone 50 MG TAB NGT (20:01)
[2017-11-04] MEDS: ATORVASTATIN 20 MG TAB NGT (20:15)
[2017-11-04] MEDS: ONDANSETRON 4 MG INJ IV (20:15)
[2017-11-04] MEDS ORDERED: traZODone 50 MG TAB NGT (21:00)
[2017-11-05] MEDS: ACETYLCYSTEINE 20% 4 ML VIAL NEB ×4 (02:04→19:19)
[2017-11-05] MEDS: ALBUTEROL 0.083% (NEB) 2.5 MG/3 ML AMP HHN ×2 (02:04→19:19)
[2017-11-05 06:51] LABS: ADD MAN DIFF? NO
[2017-11-05 07:00] LABS: BASOPHIL # 0.1 10^3/ul (0.0-0.1); BASOPHILS % 0.8 % (0.0-2.0); EOSINOPHILS # 1.6 10^3/ul (0.0-0.5); EOSINOPHILS % 21.7 % (0.0-7.0); HEMATOCRIT 27.7 % (42.0-52.0); HEMOGLOBIN 8.8 g/dl (14.0-18.0); LYMPHOCYTES # 1.6 10^3/ul (0.8-2.9); LYMPHOCYTES % 21.4 % (15.0-51.0); MEAN CORPUSCULAR HEMOGLOBIN 31.1 pg (29.0-33.0); MEAN CORPUSCULAR HGB CONC 31.8 g/dl (32.0-37.0); MEAN CORPUSCULAR VOLUME 97.9 fl (82.0-101.0); MEAN PLATELET VOLUME 11.6 fl (7.4-10.4); MONOCYTE # 0.7 10^3/ul (0.3-0.9); MONOCYTES % 9.7 % (0.0-11.0); NEUTROPHIL # 3.3 10^3/ul (1.6-7.5); PLATELET COUNT 134 10^3/UL (140-415); RED BLOOD COUNT 2.83 10^6/ul (4.70-6.10); RED CELL DISTRIBUTION WIDTH 15.8 % (11.5-14.5)
[2017-11-05 07:00] LABS: WHITE BLOOD COUNT 7.3 10^3/ul (4.8-10.8)
[2017-11-05 07:19] LABS: VANCOMYCIN,RANDOM 18.9 ug/ml
[2017-11-05 07:27] LABS: ANION GAP 18 (8-16); BLOOD UREA NITROGEN 48 mg/dl (7-20); CALCIUM 8.4 mg/dl (8.4-10.2); CARBON DIOXIDE 27 mmol/L (21-31); CHLORIDE 102 mmol/L (97-110); CREATININE 4.34 mg/dl (0.61-1.24); GLUCOSE 70 mg/dl (70-220); POTASSIUM 4.7 mmol/L (3.5-5.1); SODIUM 142 mmol/L (135-144)
[2017-11-05] MEDS: AMLODIPINE 5 MG TAB NGT (09:00)
[2017-11-05] MEDS: METOPROLOL 50 MG TAB GTB ×2 (09:00→21:29)
[2017-11-05] MEDS: ASPIRIN 81 MG TAB PO (09:23)
[2017-11-05] MEDS: GABAPENTIN 300 MG CAP NGT ×3 (09:23→21:29)
[2017-11-05] MEDS: LACTOBACILLUS RHAMNOSUS CAP PO (09:23)
[2017-11-05] MEDS: LORATADINE 10 MG TAB PO (09:23)
[2017-11-05] MEDS: SENNA TAB NGT ×2 (09:23→21:29)
[2017-11-05] MEDS: MULTIVIT/CA CARB/B CMPLX/FA TAB PO (09:23)
[2017-11-05] MEDS: ASCORBIC ACID 500 MG TAB NGT (09:24)
[2017-11-05] MEDS: PYRIDOXINE 50 MG TAB PO (09:24)
[2017-11-05] MEDS: BALSAM PERU/CASTOR OIL 60 GM TUBE TOP ×2 (09:30→21:30)
[2017-11-05] MEDS: NYSTATIN 30 GM POWDER BTL TOP ×2 (09:30→21:30)
[2017-11-05] MEDS: DOCUSATE SODIUM 100 MG CAP PO (09:31)
[2017-11-05] MEDS: CEFEPIME 1GM/50 ML (PMX) 50 ML IVPB (18:36)
[2017-11-05] MEDS ORDERED: VANCOMYCIN 1 GM 250 ML IVPB (21:00)
[2017-11-05] MEDS: LEVOFLOXACIN 750 MG TABLET PO (21:29)
[2017-11-05] MEDS: DOXYCYCLINE 100 MG TAB PO (21:29)
[2017-11-05] MEDS: ATORVASTATIN 20 MG TAB NGT (21:29)
[2017-11-05] MEDS: traZODone 50 MG TAB NGT (21:30)
[2017-11-06] MEDS: ALBUTEROL 0.083% (NEB) 2.5 MG/3 ML AMP HHN ×3 (01:27→19:45)
[2017-11-06] MEDS: ACETYLCYSTEINE 20% 4 ML VIAL NEB ×4 (01:27→19:45)
[2017-11-06] MEDS: ZOLPIDEM 5 MG TAB PO (01:58)
[2017-11-06 05:15] LABS: ADD MAN DIFF? NO
[2017-11-06 05:18] LABS: WHITE BLOOD COUNT 6.7 10^3/ul (4.8-10.8)
[2017-11-06 05:18] LABS: BASOPHIL # 0.1 10^3/ul (0.0-0.1); BASOPHILS % 0.7 % (0.0-2.0); EOSINOPHILS # 1.4 10^3/ul (0.0-0.5); EOSINOPHILS % 20.4 % (0.0-7.0); HEMATOCRIT 26.9 % (42.0-52.0); HEMOGLOBIN 8.6 g/dl (14.0-18.0); LYMPHOCYTES # 1.3 10^3/ul (0.8-2.9); LYMPHOCYTES % 19.8 % (15.0-51.0); MEAN CORPUSCULAR VOLUME 97.1 fl (82.0-101.0); MEAN PLATELET VOLUME 11.2 fl (7.4-10.4); MONOCYTE # 0.7 10^3/ul (0.3-0.9); MONOCYTES % 10.7 % (0.0-11.0); NEUTROPHIL # 3.2 10^3/ul (1.6-7.5); NEUTROPHILS % 48.1 % (39.0-77.0); PLATELET COUNT 128 10^3/UL (140-415); RED BLOOD COUNT 2.77 10^6/ul (4.70-6.10); RED CELL DISTRIBUTION WIDTH 16.1 % (11.5-14.5)
[2017-11-06 05:51] LABS: ANION GAP 14 (8-16); BLOOD UREA NITROGEN 34 mg/dl (7-20); CALCIUM 8.2 mg/dl (8.4-10.2); CARBON DIOXIDE 30 mmol/L (21-31); CHLORIDE 103 mmol/L (97-110); CREATININE 3.09 mg/dl (0.61-1.24); GLUCOSE 91 mg/dl (70-220); POTASSIUM 4.8 mmol/L (3.5-5.1); SODIUM 142 mmol/L (135-144)
[2017-11-06] MEDS: LORATADINE 10 MG TAB PO (09:00)
[2017-11-06] MEDS: PYRIDOXINE 50 MG TAB PO (09:00)
[2017-11-06] MEDS: DOXYCYCLINE 100 MG TAB PO ×2 (09:00→21:42)
[2017-11-06] MEDS: LACTOBACILLUS RHAMNOSUS CAP PO (09:28)
[2017-11-06] MEDS: DOCUSATE SODIUM 100 MG CAP PO (09:28)
[2017-11-06] MEDS: ASCORBIC ACID 500 MG TAB NGT (09:28)
[2017-11-06] MEDS: ASPIRIN 81 MG TAB PO (09:28)
[2017-11-06] MEDS: SENNA TAB NGT ×2 (09:28→21:42)
[2017-11-06] MEDS: MULTIVIT/CA CARB/B CMPLX/FA TAB PO (09:28)
[2017-11-06] MEDS: AMLODIPINE 5 MG TAB NGT (09:28)
[2017-11-06] MEDS: GABAPENTIN 300 MG CAP NGT ×3 (09:29→21:42)
[2017-11-06] MEDS: METOPROLOL 50 MG TAB GTB ×2 (09:29→21:45)
[2017-11-06] MEDS: BALSAM PERU/CASTOR OIL 60 GM TUBE TOP ×2 (09:30→21:49)
[2017-11-06] MEDS: NYSTATIN 30 GM POWDER BTL TOP ×2 (09:30→21:49)
[2017-11-06] MEDS: ATORVASTATIN 20 MG TAB NGT (21:42)
[2017-11-06] MEDS: traZODone 50 MG TAB NGT (21:42)
[2017-11-07] MEDS: ACETYLCYSTEINE 20% 4 ML VIAL NEB ×4 (01:11→20:04)
[2017-11-07] MEDS: ALBUTEROL 0.083% (NEB) 2.5 MG/3 ML AMP HHN ×4 (01:11→20:04)
[2017-11-07 05:31] LABS: ADD MAN DIFF? NO
[2017-11-07 05:47] LABS: WHITE BLOOD COUNT 6.3 10^3/ul (4.8-10.8)
[2017-11-07 05:47] LABS: BASOPHIL # 0.1 10^3/ul (0.0-0.1); BASOPHILS % 0.8 % (0.0-2.0); EOSINOPHILS # 1.5 10^3/ul (0.0-0.5); HEMATOCRIT 25.4 % (42.0-52.0); HEMOGLOBIN 8.1 g/dl (14.0-18.0); LYMPHOCYTES # 1.5 10^3/ul (0.8-2.9); LYMPHOCYTES % 24.1 % (15.0-51.0); MEAN CORPUSCULAR HEMOGLOBIN 30.8 pg (29.0-33.0); MEAN CORPUSCULAR HGB CONC 31.9 g/dl (32.0-37.0); MEAN CORPUSCULAR VOLUME 96.6 fl (82.0-101.0); MEAN PLATELET VOLUME 11.6 fl (7.4-10.4); MONOCYTE # 0.6 10^3/ul (0.3-0.9); MONOCYTES % 9.5 % (0.0-11.0); NEUTROPHIL # 2.7 10^3/ul (1.6-7.5); NEUTROPHILS % 42.3 % (39.0-77.0); PLATELET COUNT 130 10^3/UL (140-415); RED BLOOD COUNT 2.63 10^6/ul (4.70-6.10); RED CELL DISTRIBUTION WIDTH 16.2 % (11.5-14.5)
[2017-11-07 06:14] LABS: ANION GAP 14 (8-16); BLOOD UREA NITROGEN 43 mg/dl (7-20); CALCIUM 8.6 mg/dl (8.4-10.2); CARBON DIOXIDE 30 mmol/L (21-31); CHLORIDE 104 mmol/L (97-110); CREATININE 3.71 mg/dl (0.61-1.24); GLUCOSE 80 mg/dl (70-220); POTASSIUM 4.9 mmol/L (3.5-5.1); SODIUM 143 mmol/L (135-144)
[2017-11-07] MEDS: SENNA TAB NGT ×2 (08:24→20:48)
[2017-11-07] MEDS: DOXYCYCLINE 100 MG TAB PO ×2 (08:24→20:47)
[2017-11-07] MEDS: DOCUSATE SODIUM 100 MG CAP PO (08:24)
[2017-11-07] MEDS: MULTIVIT/CA CARB/B CMPLX/FA TAB PO (08:24)
[2017-11-07] MEDS: PYRIDOXINE 50 MG TAB PO (08:24)
[2017-11-07] MEDS: LORATADINE 10 MG TAB PO (08:25)
[2017-11-07] MEDS: ASPIRIN 81 MG TAB PO (08:25)
[2017-11-07] MEDS: ASCORBIC ACID 500 MG TAB NGT (08:25)
[2017-11-07] MEDS: NYSTATIN 30 GM POWDER BTL TOP ×2 (08:25→20:49)
[2017-11-07] MEDS: LACTOBACILLUS RHAMNOSUS CAP PO (08:25)
[2017-11-07] MEDS: GABAPENTIN 300 MG CAP NGT ×3 (08:25→20:48)
[2017-11-07] MEDS: BALSAM PERU/CASTOR OIL 60 GM TUBE TOP ×2 (08:26→20:49)
[2017-11-07] MEDS: METOPROLOL 50 MG TAB GTB ×3 (08:28→20:48)
[2017-11-07] MEDS: AMLODIPINE 5 MG TAB NGT ×2 (08:28→15:08)
[2017-11-07] MEDS: LEVOFLOXACIN 500 MG TAB PO (20:46)
[2017-11-07] MEDS: traZODone 50 MG TAB NGT (20:46)
[2017-11-07] MEDS: ATORVASTATIN 20 MG TAB NGT (20:48)
[2017-11-07] MEDS: ZOLPIDEM 5 MG TAB PO (23:19)
[2017-11-07] MEDS: DIPHENHYDRAMINE 25 MG CAP PO (23:20)
[2017-11-08] MEDS: ACETYLCYSTEINE 20% 4 ML VIAL NEB ×4 (01:43→20:02)
[2017-11-08] MEDS: ALBUTEROL 0.083% (NEB) 2.5 MG/3 ML AMP HHN ×4 (01:43→20:02)
[2017-11-08 04:54] LABS: ADD MAN DIFF? NO
[2017-11-08 05:02] LABS: WHITE BLOOD COUNT 5.9 10^3/ul (4.8-10.8)
[2017-11-08 05:02] LABS: BASOPHIL # 0.1 10^3/ul (0.0-0.1); BASOPHILS % 0.9 % (0.0-2.0); EOSINOPHILS # 1.5 10^3/ul (0.0-0.5); EOSINOPHILS % 24.8 % (0.0-7.0); HEMATOCRIT 26.7 % (42.0-52.0); HEMOGLOBIN 8.5 g/dl (14.0-18.0); LYMPHOCYTES # 1.6 10^3/ul (0.8-2.9); LYMPHOCYTES % 27.2 % (15.0-51.0); MEAN CORPUSCULAR HEMOGLOBIN 31.3 pg (29.0-33.0); MEAN CORPUSCULAR HGB CONC 31.8 g/dl (32.0-37.0); MEAN CORPUSCULAR VOLUME 98.2 fl (82.0-101.0); MEAN PLATELET VOLUME 11.3 fl (7.4-10.4); MONOCYTE # 0.7 10^3/ul (0.3-0.9); MONOCYTES % 11.4 % (0.0-11.0); NEUTROPHIL # 2.1 10^3/ul (1.6-7.5); NEUTROPHILS % 35.4 % (39.0-77.0); PLATELET COUNT 137 10^3/UL (140-415); RED BLOOD COUNT 2.72 10^6/ul (4.70-6.10); RED CELL DISTRIBUTION WIDTH 16.3 % (11.5-14.5)
[2017-11-08 05:18] LABS: ANION GAP 14 (8-16); BLOOD UREA NITROGEN 30 mg/dl (7-20); CALCIUM 8.2 mg/dl (8.4-10.2); CARBON DIOXIDE 30 mmol/L (21-31); CHLORIDE 100 mmol/L (97-110); CREATININE 2.97 mg/dl (0.61-1.24); GLUCOSE 65 mg/dl (70-220); POTASSIUM 4.8 mmol/L (3.5-5.1); SODIUM 139 mmol/L (135-144)
[2017-11-08] MEDS: ASPIRIN 81 MG TAB PO (08:55)
[2017-11-08] MEDS: LACTOBACILLUS RHAMNOSUS CAP PO (08:56)
[2017-11-08] MEDS: MULTIVIT/CA CARB/B CMPLX/FA TAB PO (08:56)
[2017-11-08] MEDS: DOXYCYCLINE 100 MG TAB PO ×2 (08:56→21:10)
[2017-11-08] MEDS: GABAPENTIN 300 MG CAP NGT ×3 (08:56→21:00)
[2017-11-08] MEDS: AMLODIPINE 5 MG TAB NGT (08:56)
[2017-11-08] MEDS: ASCORBIC ACID 500 MG TAB NGT (08:56)
[2017-11-08] MEDS: SENNA TAB NGT ×2 (08:57→21:10)
[2017-11-08] MEDS: LORATADINE 10 MG TAB PO (08:57)
[2017-11-08] MEDS: METOPROLOL 50 MG TAB GTB ×2 (08:57→21:00)
[2017-11-08] MEDS: PYRIDOXINE 50 MG TAB PO (08:58)
[2017-11-08] MEDS: DOCUSATE SODIUM 100 MG CAP PO (08:58)
[2017-11-08] MEDS: BALSAM PERU/CASTOR OIL 60 GM TUBE TOP ×2 (08:59→21:11)
[2017-11-08] MEDS: NYSTATIN 30 GM POWDER BTL TOP ×2 (08:59→21:11)
[2017-11-08] MEDS: ACCU-CHEK XX ×3 (11:15→21:13)
[2017-11-08] MEDS: ATORVASTATIN 20 MG TAB NGT (21:00)
[2017-11-08] MEDS: traZODone 50 MG TAB NGT (21:10)
[2017-11-09] MEDS: ALBUTEROL 0.083% (NEB) 2.5 MG/3 ML AMP HHN ×4 (01:57→19:29)
[2017-11-09] MEDS: ACETYLCYSTEINE 20% 4 ML VIAL NEB ×4 (01:57→19:41)
[2017-11-09] MEDS: ACCU-CHEK XX ×4 (07:25→20:43)
[2017-11-09] MEDS: DOCUSATE SODIUM 100 MG CAP PO (08:45)
[2017-11-09] MEDS: LACTOBACILLUS RHAMNOSUS CAP PO (08:45)
[2017-11-09] MEDS: GABAPENTIN 300 MG CAP NGT ×3 (08:45→20:42)
[2017-11-09] MEDS: MULTIVIT/CA CARB/B CMPLX/FA TAB PO (08:45)
[2017-11-09] MEDS: LORATADINE 10 MG TAB PO (08:45)
[2017-11-09] MEDS: DOXYCYCLINE 100 MG TAB PO ×2 (08:45→20:39)
[2017-11-09] MEDS: ASPIRIN 81 MG TAB PO (08:46)
[2017-11-09] MEDS: ASCORBIC ACID 500 MG TAB NGT (08:46)
[2017-11-09] MEDS: PYRIDOXINE 50 MG TAB PO (08:46)
[2017-11-09] MEDS: NYSTATIN 30 GM POWDER BTL TOP ×2 (08:46→20:42)
[2017-11-09] MEDS: AMLODIPINE 5 MG TAB NGT (08:47)
[2017-11-09] MEDS: METOPROLOL 50 MG TAB GTB ×2 (08:47→20:41)
[2017-11-09] MEDS: BALSAM PERU/CASTOR OIL 60 GM TUBE TOP ×2 (08:48→20:42)
[2017-11-09] MEDS: SENNA TAB NGT ×2 (08:48→20:40)
[2017-11-09] MEDS: DIPHENHYDRAMINE 25 MG CAP PO (20:40)
[2017-11-09] MEDS: LEVOFLOXACIN 500 MG TAB PO (20:40)
[2017-11-09] MEDS: traZODone 50 MG TAB NGT (20:40)
[2017-11-09] MEDS: ATORVASTATIN 20 MG TAB NGT (20:42)
[2017-11-10] MEDS: ALBUTEROL 0.083% (NEB) 2.5 MG/3 ML AMP HHN ×4 (02:55→19:44)
[2017-11-10] MEDS: ACETYLCYSTEINE 20% 4 ML VIAL NEB ×4 (03:08→19:44)
[2017-11-10] MEDS: ACCU-CHEK XX ×4 (07:25→21:00)
[2017-11-10] MEDS: INSULIN ASPART [NOVOLOG] 3 ML PEN SC ×3 (11:50→21:00)
[2017-11-10] MEDS: GABAPENTIN 300 MG CAP NGT ×3 (13:00→21:11)
[2017-11-10] MEDS: ASPIRIN 81 MG TAB PO (13:33)
[2017-11-10] MEDS: LORATADINE 10 MG TAB PO (13:35)
[2017-11-10] MEDS: METOPROLOL 50 MG TAB GTB ×2 (13:35→21:11)
[2017-11-10] MEDS: DOCUSATE SODIUM 100 MG CAP PO (13:37)
[2017-11-10] MEDS: LACTOBACILLUS RHAMNOSUS CAP PO (13:39)
[2017-11-10] MEDS: SENNA TAB NGT ×2 (13:40→21:11)
[2017-11-10] MEDS: MULTIVIT/CA CARB/B CMPLX/FA TAB PO (13:41)
[2017-11-10] MEDS: ASCORBIC ACID 500 MG TAB NGT (13:42)
[2017-11-10] MEDS: AMLODIPINE 5 MG TAB NGT (13:44)
[2017-11-10] MEDS: DOXYCYCLINE 100 MG TAB PO ×2 (13:46→21:11)
[2017-11-10] MEDS: BALSAM PERU/CASTOR OIL 60 GM TUBE TOP ×2 (13:47→21:12)
[2017-11-10] MEDS: PYRIDOXINE 50 MG TAB PO (13:47)
[2017-11-10] MEDS: NYSTATIN 30 GM POWDER BTL TOP ×2 (13:47→21:12)
[2017-11-10] MEDS: traZODone 50 MG TAB NGT (21:11)
[2017-11-10] MEDS: ATORVASTATIN 20 MG TAB NGT (21:11)
[2017-11-11] MEDS: ACETYLCYSTEINE 20% 4 ML VIAL NEB ×3 (01:18→13:17)
[2017-11-11] MEDS: ALBUTEROL 0.083% (NEB) 2.5 MG/3 ML AMP HHN ×3 (01:18→13:19)
[2017-11-11] MEDS: ACCU-CHEK XX ×2 (08:00→12:00)
[2017-11-11] MEDS: INSULIN ASPART [NOVOLOG] 3 ML PEN SC ×2 (08:15→12:15)
[2017-11-11] MEDS: BALSAM PERU/CASTOR OIL 60 GM TUBE TOP (09:00)
[2017-11-11] MEDS: NYSTATIN 30 GM POWDER BTL TOP (09:00)
[2017-11-11] MEDS: ASCORBIC ACID 500 MG TAB NGT (10:10)
[2017-11-11] MEDS: MULTIVIT/CA CARB/B CMPLX/FA TAB PO (10:11)
[2017-11-11] MEDS: LORATADINE 10 MG TAB PO (10:11)
[2017-11-11] MEDS: GABAPENTIN 300 MG CAP NGT ×2 (10:11→13:00)
[2017-11-11] MEDS: DOCUSATE SODIUM 100 MG CAP PO (10:11)
[2017-11-11] MEDS: ASPIRIN 81 MG TAB PO (10:11)
[2017-11-11] MEDS: PYRIDOXINE 50 MG TAB PO (10:11)
[2017-11-11] MEDS: SENNA TAB NGT (10:11)
[2017-11-11] MEDS: LACTOBACILLUS RHAMNOSUS CAP PO (10:12)
[2017-11-11] MEDS: DOXYCYCLINE 100 MG TAB PO (10:12)
[2017-11-11] MEDS: AMLODIPINE 5 MG TAB NGT (10:16)
[2017-11-11] MEDS: METOPROLOL 50 MG TAB GTB (10:17)
== END 2017-11-11 16:50 | DRG 163 ==
LOC: TEL 10-24 18:19 → ICU 11-02 10:24 → PP2 11-04 22:52 → ICU 11-06 08:55 → TEL 11-08 16:59 → MS2 11-11 02:59 → TEL 10-30 16:09 → E/R 18:20 → ICU 10-21 23:05 → MS4 19:57
PROC: 0BNL4ZZ Release Left Lung, Percutaneous Endoscopic Approach (ICD-10-PCS; principal; 2017-10-21 19:00)
PROC: 0BCB8ZZ Extirpation of Matter from Left Lower Lobe Bronchus, Via Natural or Artificial Opening Endoscopic (ICD-10-PCS; 2017-10-21 20:37)
PROC: 0BC78ZZ Extirpation of Matter from Left Main Bronchus, Via Natural or Artificial Opening Endoscopic (ICD-10-PCS; 2017-10-21 20:37)
PROC: 0BH17EZ Insertion of Endotracheal Airway into Trachea, Via Natural or Artificial Opening (ICD-10-PCS; 2017-10-21 20:37)
PROC: 30233R1 Transfusion of Nonautologous Platelets into Peripheral Vein, Percutaneous Approach (ICD-10-PCS; 2017-10-21 20:37)
PROC: 30233N1 Transfusion of Nonautologous Red Blood Cells into Peripheral Vein, Percutaneous Approach (ICD-10-PCS; 2017-10-21 20:37)
PROC: 5A1935Z Respiratory Ventilation, Less than 24 Consecutive Hours (ICD-10-PCS; 2017-10-21 20:37)
PROC: 5A1D70Z Performance of Urinary Filtration, Intermittent, Less than 6 Hours Per Day (ICD-10-PCS; 2017-10-21 20:37)
DX: J98.11 Atelectasis (principal); J86.9 Pyothorax without fistula; J18.9 Pneumonia, unspecified organism; N18.6 End stage renal disease; J91.8 Pleural effusion in other conditions classified elsewhere; N17.9 Acute kidney failure, unspecified; I12.0 Hypertensive chronic kidney disease with stage 5 chronic kidney disease or end stage renal disease; N39.0 Urinary tract infection, site not specified; B37.49 Other urogenital candidiasis; C79.9 Secondary malignant neoplasm of unspecified site; T17.590A Other foreign object in bronchus causing asphyxiation, initial encounter; D50.0 Iron deficiency anemia secondary to blood loss (chronic); E11.22 Type 2 diabetes mellitus with diabetic chronic kidney disease; E66.9 Obesity, unspecified; Z68.31 Body mass index [BMI] 31.0-31.9, adult; Z85.038 Personal history of other malignant neoplasm of large intestine; Z85.51 Personal history of malignant neoplasm of bladder; E86.0 Dehydration; I45.81 Long QT syndrome; Z95.0 Presence of cardiac pacemaker; I45.10 Unspecified right bundle-branch block; Z87.891 Personal history of nicotine dependence; D69.6 Thrombocytopenia, unspecified; Z99.2 Dependence on renal dialysis; Z95.1 Presence of aortocoronary bypass graft; B96.1 Klebsiella pneumoniae [K. pneumoniae] as the cause of diseases classified elsewhere; B96.20 Unspecified Escherichia coli [E. coli] as the cause of diseases classified elsewhere; Z16.12 Extended spectrum beta lactamase (ESBL) resistance; Z16.21 Resistance to vancomycin; R29.890 Loss of height
CPT/HCPCS: 36415; 36430; 36600; 71045; 71250; 74176; 80048; 80053; 80202; 80306; 82270; 82306; 82378; 82607; 82668; 82728; 82746; 82803; 82962; 83010; 83036; 83540; 83615; 83735; 84100; 84132; 84443; 84484; 84560; 85025; 85045; 85610; 85651; 85730; 86022; 86644; 86704; 86706; 86850; 86900; 86901; 86920; 87040; 87075; 87081; 87086; 87340; 90935; 92526; 92610; 93005; 93306; 93971; 94002; 94003; 94640; 94664; 94668; 94770; 96374; 97110; 97116; 97162; 97165; 97530; 97535; 99291-25